=== PATIENT | male | born 1940 | race Two or more races ===

== ENCOUNTER 2017-11-26 08:43 | Inpatient (IN) | payer MEDICARE, OTHER ==
[~2017-11-26] VITALS: Ht 198.1 cm; Wt 67.6 kg
[2017-11-26] MEDS ORDERED: XTANDI40 MG ORAL (09:07)
--- NOTE | 2017-11-26 09:13 | Emergency Room Report ---
History of Present Illness General Chief Complaint: Diarrhea Source: Patient Present Illness HPI Patient presents with complaints of increased weight loss Decreased oral intake Epigastric discomfort with low back discomfort Patient reports that he had a history of prostate cancer had previous surgery however the cancer again returned Over the past 3 years he has been on a drug trial enzalutamide Patient's physician Dr. uribe [phone] is at [facility] Patient denies any fevers however he also reports recent URI symptoms Mild cough Allergies: Coded Allergies: No Known Allergies (Unverified , 11/26/17) Patient History Past Medical History: see triage record Pertinent Family History: none Reviewed Nursing Documentation: PMH: Agreed, PSxH: Agreed Nursing Documentation-PMH Past Medical History: No History, Except For Hx Cancer: Yes - prostate Review of Systems All Other Systems: negative except mentioned in HPI Physical Exam Vital Signs Date Time Temp Pulse Resp B/P (MAP) Pulse Ox O2 Delivery O2 Flow Rate FiO2 11/26/17 08:55 97.5 115 18 93/61 98 Room Air Sp02 EP Interpretation: reviewed, normal General Appearance: no apparent distress Head: normocephalic, atraumatic Eyes: bilateral eye PERRL, bilateral eye EOMI, bilateral eye scleral icterus ENT: hearing grossly normal, TMs + canals normal, uvula midline, dry mucus membranes Neck: full range of motion, supple, no meningismus, no bony tend Respiratory: lungs clear, normal breath sounds, no rhonchi, no respiratory distress, no retraction, no accessory muscle use Cardiovascular #1: normal peripheral pulses, regular rate, rhythm, no edema, no gallop, no JVD, no murmur Gastrointestinal: normal bowel sounds, non tender, soft, no mass, no organomegaly, non-distended, no guarding, no hernia, no pulsatile mass, no rebound Genitourinary: no CVA tenderness Musculoskeletal: normal inspection Neurologic: oriented x3, responsive, 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, motor strength/ tone normal, sensory intact Psychiatric: mood/affect normal Skin: normal color, no rash, warm/dry, palpation normal Lymphatic: normal inspection, no adenopathy Medical Decision Making Diagnostic Impression: Primary Impression: Diarrhea Additional Impressions: Medication reaction Hepatitis ER Course Patient has presented on this Also shows evidence of weight loss Extensive blood work and imaging reveals abnormal findings with liver abnormalities Patient's further hydrated at this time does not complain of pain Patient will require further inpatient evaluation and imaging And admitted for further care Labs Test 11/26/17 09:30 11/26/17 10:05 11/27/17 08:14 White Blood Count 8.6 K/UL (4.8-10.8) 7.3 K/UL (4.8-10.8) Red Blood Count 4.34 M/UL (4.70-6.10) 4.10 M/UL (4.70-6.10) Hemoglobin 10.6 G/DL (14.2-18.0) 10.2 G/DL (14.2-18.0) Hematocrit 35.3 % (42.0-52.0) 33.1 % (42.0-52.0) Mean Corpuscular Volume 81 FL (80-99) 81 FL (80-99) Mean Corpuscular Hemoglobin 24.3 PG (27.0-31.0) 24.9 PG (27.0-31.0) Mean Corpuscular Hemoglobin Concent 29.9 G/DL (32.0-36.0) 30.9 G/DL (32.0-36.0) Red Cell Distribution Width 13.2 % (11.6-14.8) 13.3 % (11.6-14.8) Platelet Count 215 K/UL (150-450) 190 K/UL (150-450) Mean Platelet Volume 12.0 FL (6.5-10.1) 11.5 FL (6.5-10.1) Neutrophils (%) (Auto) % (45.0-75.0) 79.6 % (45.0-75.0) Lymphocytes (%) (Auto) % (20.0-45.0) 10.2 % (20.0-45.0) Monocytes (%) (Auto) % (1.0-10.0) 8.1 % (1.0-10.0) Eosinophils (%) (Auto) % (0.0-3.0) 1.5 % (0.0-3.0) Basophils (%) (Auto) % (0.0-2.0) 0.6 % (0.0-2.0) Differential Total Cells Counted 100 Neutrophils % (Manual) 91 % (45-75) Lymphocytes % (Manual) 4 % (20-45) Monocytes % (Manual) 4 % (1-10) Eosinophils % (Manual) 0 % (0-3) Basophils % (Manual) 1 % (0-2) Band Neutrophils 0 % (0-8) Platelet Estimate Adequate Platelet Morphology Normal Hypochromasia 1+ Anisocytosis 1+ Sodium Level 138 MMOL/L (136-145) 139 MMOL/L (136-145) Potassium Level 4.0 MMOL/L (3.5-5.1) 4.1 MMOL/L (3.5-5.1) Chloride Level 103 MMOL/L (98-107) 107 MMOL/L (98-107) Carbon Dioxide Level 25 MMOL/L (21-32) 25 MMOL/L (21-32) Anion Gap 10 mmol/L (5-15) 8 mmol/L (5-15) Blood Urea Nitrogen 32 mg/dL (7-18) 19 mg/dL (7-18) Creatinine 1.7 MG/DL (0.55-1.30) 0.9 MG/DL (0.55-1.30) Estimat Glomerular Filtration Rate mL/min (>60) mL/min (>60) Glucose Level 116 MG/DL (74-106) 84 MG/DL (74-106) Lactic Acid Level 2.10 mmol/L (0.66-2.22) 1.80 mmol/L (0.66-2.22) Calcium Level 10.4 MG/DL (8.5-10.1) 10.1 MG/DL (8.5-10.1) Total Bilirubin 18.7 MG/DL (0.2-1.0) 18.6 MG/DL (0.2-1.0) Direct Bilirubin 15.7 MG/DL (0.0-0.3) 15.3 MG/DL (0.0-0.3) Aspartate Amino Transf (AST/SGOT) 127 U/L (15-37) 114 U/L (15-37) Alanine Aminotransferase (ALT/SGPT) 254 U/L (12-78) 214 U/L (12-78) Alkaline Phosphatase 222 U/L (46-116) 200 U/L (46-116) Total Creatine Kinase 22 U/L (26-308) Creatine Kinase MB < 0.5 NG/ML (0.0-3.6) Creatine Kinase MB Relative Index 2.2 Troponin I 0.000 ng/mL (0.000-0.056) Total Protein 8.4 G/DL (6.4-8.2) 7.5 G/DL (6.4-8.2) Albumin 2.9 G/DL (3.4-5.0) 2.5 G/DL (3.4-5.0) Globulin 5.5 g/dL 5.0 g/dL Albumin/Globulin Ratio 0.5 (1.0-2.7) 0.5 (1.0-2.7) Lipase 596 U/L (73-393) Urine Color Brown Urine Appearance Cloudy Urine pH 5 (4.5-8.0) Urine Specific [place] 1.020 (1.005-1.035) Urine Protein 2+ (NEGATIVE) Urine Glucose (UA) Negative (NEGATIVE) Urine Ketones Negative (NEGATIVE) Urine Occult Blood 4+ (NEGATIVE) Urine Nitrite Positive (NEGATIVE) Urine Bilirubin 3+ (NEGATIVE) Urine Ictotest Positive Urine Urobilinogen 4 MG/DL (0.0-1.0) Urine Leukocyte Esterase 3+ (NEGATIVE) Urine RBC 10-15 /HPF (0 - 0) Urine WBC Tntc /HPF (0 - 0) Urine Squamous Epithelial Cells Moderate /LPF (NONE/OCC) Urine Bacteria Moderate /HPF (NONE) Prothrombin Time 12.1 SEC (9.30-11.50) Prothromb Time International Ratio 1.2 (0.9-1.1) Rhythm Strip Diag. Results EP Interpretation: yes Rate: 78 Rhythm: NSR, no PVC's, no ectopy Chest X-Ray Diagnostic Results Chest X-Ray Diagnostic Results : Chest X-Ray Ordered: Yes # of Views/Limited/Complete: 1 View Indication: Chest Pain EP Interpretation: Yes Interpretation: no consolidation, no effusion, no pneumothorax, no acute cardiopulmonary disease Impression: No acute disease Electronically Signed by: Kristie Hartley, CT/MRI/US Diagnostic Results CT/MRI/US Diagnostic Results : Impression abdominal ultrasoundIMPRESSION: Hepatomegaly with coarsened echotexture. Correlate for chronic disease. 3.6 cm distal abdominal aortic aneurysm. Biliary ductal dilatation. Downstream obstruction or stenosis may be evaluated with MRCP. Please correlate clinically. Gallbladder sludge Multiple cysts within the left kidney. Last Vital Signs Date Time Temp Pulse Resp B/P (MAP) Pulse Ox O2 Delivery O2 Flow Rate FiO2 11/26/17 08:55 97.5 115 18 93/61 98 Room Air Status: improved Disposition: ADMITTED INPATIENT Condition: Serious KRISTIE HARTLEY D.O. Nov 26, 2017 09:13
[2017-11-26 09:55] LABS: HEMATOCRIT 35.3 % (42.0-52.0); HEMOGLOBIN 10.6 G/DL (14.2-18.0); MEAN CORPUSCULAR VOLUME 81 FL (80-99); PLATELET COUNT 215 K/UL (150-450); RED BLOOD COUNT 4.34 M/UL (4.70-6.10); RED CELL DISTRIBUTION WIDTH 13.2 % (11.6-14.8); WHITE BLOOD COUNT 8.6 K/UL (4.8-10.8)
[2017-11-26 09:59] LABS: ANION GAP 10 mmol/L (5-15); BLOOD UREA NITROGEN 32 mg/dL (7-18); CALCIUM 10.4 MG/DL (8.5-10.1); CARBON DIOXIDE 25 MMOL/L (21-32); CHLORIDE 103 MMOL/L (98-107); CREATININE 1.7 MG/DL (0.55-1.30); SODIUM 138 MMOL/L (136-145)
[2017-11-26 10:13] LABS: ALANINE AMINOTRANSFERASE 254 U/L (12-78); ALBUMIN 2.9 G/DL (3.4-5.0); ALBUMIN/GLOBULIN RATIO 0.5 (1.0-2.7); ALKALINE PHOSPHATASE 222 U/L (46-116); ASPARTATE AMINO TRANSFERASE 127 U/L (15-37); BILIRUBIN,TOTAL 18.7 MG/DL (0.2-1.0); CKMB < 0.5 NG/ML (0.0-3.6); CREATINE KINASE 22 U/L (26-308)
[2017-11-26 10:17] LABS: BILIRUBIN,DIRECT 15.7 MG/DL (0.0-0.3)
[2017-11-26 11:14] LABS: APPEARANCE,URINE CLOUDY; BILIRUBIN, URINE 3+ (NEGATIVE); COLOR,URINE BROWN; GLUCOSE, URINE (UA) NEGATIVE (NEGATIVE); KETONES,URINE NEGATIVE (NEGATIVE); LEUKOCYTE ESTERASE ,URINE 3+ (NEGATIVE); NITRITE,URINE POSITIVE (NEGATIVE); PH,URINE 5 (4.5-8.0); PROTEIN,URINE 2+ (NEGATIVE); UROBILINOGEN,URINE 4 MG/DL (0.0-1.0)
[2017-11-26 11:54] VITALS: BP 139/74
[2017-11-26 12:40] VITALS: BP 140/72
--- NOTE | 2017-11-26 14:16 | Diagnostic Imaging Report ---
Indication: Chest pain Comparison: None A single view chest radiograph was obtained. Findings: Lungs are clear. Heart is normal in size. Bones are osteopenic. IMPRESSION: No acute disease
--- NOTE | 2017-11-26 15:22 | Diagnostic Imaging Report ---
Indication: Elevated liver function test Technique: Grayscale and duplex Doppler imaging of the abdomen performed. Comparison: None Findings: There is an aneurysm of the abdominal aorta distally measuring 3.6 cm maximally. Liver is prominent in size. There is intrahepatic biliary ductal dilatation. The CBD is dilated measuring 13 mm. Gallbladder sludge noted. No stones seen. Demonstrated are present in the pancreas is unremarkable. There are multiple cysts within the left kidney. There is no ascites. Liver demonstrates a somewhat coarsened echotexture. Portal vein is patent by Doppler. IMPRESSION: Hepatomegaly with coarsened echotexture. Correlate for chronic disease. 3.6 cm distal abdominal aortic aneurysm. Biliary ductal dilatation. Downstream obstruction or stenosis may be evaluated with MRCP. Please correlate clinically. Gallbladder sludge Multiple cysts within the left kidney.
--- NOTE | 2017-11-26 16:46 | General Progress Note ---
Assessment/Plan Assessment/Plan GI CONSULT Dictated Will arrange for ERCP Wednesday Thank you Kasandra Jose MD Subjective Allergies: Coded Allergies: No Known Allergies (Unverified , 11/26/17) Objective Last 24 Hour Vital Signs Date Time Temp Pulse Resp B/P (MAP) Pulse Ox O2 Delivery O2 Flow Rate FiO2 11/26/17 12:40 97.2 84 18 140/72 98 Room Air 11/26/17 11:54 98.7 19 139/74 99 Room Air 11/26/17 11:25 19 138/74 99 Room Air 11/26/17 08:55 97.5 115 18 93/61 98 Room Air Laboratory Tests 11/26/17 09:30: White Blood Count 8.6, Red Blood Count 4.34L, Hemoglobin 10.6L, Hematocrit 35.3L , Mean Corpuscular Volume 81, Mean Corpuscular Hemoglobin 24.3L, Mean Corpuscular Hemoglobin Concent 29.9L, Red Cell Distribution Width 13.2, Platelet Count 215, Mean Platelet Volume 12.0H, Neutrophils (%) (Auto) , Lymphocytes (%) (Auto) , Monocytes (%) (Auto) , Eosinophils (%) (Auto) , Basophils (%) (Auto) , Differential Total Cells Counted 100, Neutrophils % ( Manual) 91H, Lymphocytes % (Manual) 4L, Monocytes % (Manual) 4, Eosinophils % ( Manual) 0, Basophils % (Manual) 1, Band Neutrophils 0, Platelet Estimate Adequate, Platelet Morphology Normal, Hypochromasia 1+, Anisocytosis 1+, Sodium Level 138, Potassium Level 4.0, Chloride Level 103, Carbon Dioxide Level 25, Anion Gap 10, Blood Urea Nitrogen 32H, Creatinine 1.7H, Estimat Glomerular Filtration Rate , Glucose Level 116H, Lactic Acid Level 2.10, Calcium Level 10.4H, Total Bilirubin 18.7H, Direct Bilirubin 15.7H, Aspartate Amino Transf ( AST/SGOT) 127H, Alanine Aminotransferase (ALT/SGPT) 254H, Alkaline Phosphatase 222H, Total Creatine Kinase 22L, Creatine Kinase MB < 0.5, Creatine Kinase MB Relative Index 2.2, Troponin I 0.000, Total Protein 8.4H, Albumin 2.9L, Globulin 5.5, Albumin/Globulin Ratio 0.5L, Lipase 596H 2/2/18 10:05: Lactic Acid Level 1.80, Urine Color Brown, Urine Appearance Cloudy, Urine pH 5, Urine Specific [place] 1.020, Urine Protein 2+H, Urine Glucose (UA) Negative, Urine Ketones Negative, Urine Occult Blood 4+H, Urine Nitrite PositiveH, Urine Bilirubin 3+H, Urine Ictotest Positive, Urine Urobilinogen 4H, Urine Leukocyte Esterase 3+H, Urine RBC 10-15H, Urine WBC TntcH, Urine Squamous Epithelial Cells ModerateH, Urine Bacteria ModerateH Height (Feet): 6 Height (Inches): 3.00 Weight (Pounds): 149 TAVONKASANDRA MARTINEZ Nov 26, 2017 16:46
[2017-11-26 20:02] VITALS: BP 130/74
--- NOTE | 2017-11-26 23:45 | History and Physical Report ---
DATE OF ADMISSION: 11/26/2017 REASON FOR ADMISSION: Weakness, anorexia, diarrhea, and dizziness. HISTORY OF PRESENT ILLNESS: This is a 77-year-old male. He lives home alone. He has a history of prostate cancer that apparently is metastatic. He is on a drug trial at [facility] taking enzalutamide versus placebo. In addition, he gets hormone injections every three months. The patient has been well until about a month ago when he had a upper respiratory infection, which he described as a flu. He has never recovered from that in his opinion, although his cough has decreased and he is no longer short of breath, but he has remained weak, withdrawn with anorexia, and a poor appetite. He has also had episodes of diarrhea. He did not take any antibiotics or other therapies for this illness however. The patient continues to feel dizzy and lightheaded upon standing and walking. PAST MEDICAL HISTORY: Prostate cancer. ALLERGIES: None. MEDICATIONS: Prior to admission as noted include trial drug versus placebo alone. FAMILY HISTORY: Noncontributory. SOCIAL HISTORY: Negative for smoking, alcohol, or substance abuse. REVIEW OF SYSTEMS: A 10-point review of systems performed, all systems negative other than noted above. PHYSICAL EXAMINATION: VITAL SIGNS: Blood pressure 93/61, pulse 115, respirations 18, and afebrile. HEENT: Temporal wasting. Pale conjunctivae. Oropharynx clear. Mucous membranes dry. NECK: Supple. Jugular venous pressure normal. LUNGS: Clear. CARDIAC: Regular rhythm. Rapid rate. Normal S1, S2 with a fourth heart sound. No murmur. ABDOMEN: Soft, nontender. No guarding. No rebound. EXTREMITIES: Good pulses. No edema. NEUROLOGIC: Nonfocal. LABORATORY AND DIAGNOSTIC DATA: White count 8.6, hemoglobin 10.6, MCV 81. Sodium 138, potassium 4, bicarbonate 25, BUN 32, and creatinine 1.7. Lactic acid normal. Calcium 10.4 with albumin of 2.9. Liver function elevated with total bilirubin 18, AST ALT 127/254, and alkaline phosphatase of 222 with lipase of 596. EKG with sinus tachycardia and nonspecific ST-T changes. Abdominal ultrasound revealed multiple cysts and gallbladder sludge with dilated biliary duct and abdominal aortic aneurysm of 3.6 cm. Chest x-ray reveals no acute process. IMPRESSION: 1. Transaminitis. 2. Moderate protein-calorie malnutrition. 3. Anorexia and failure to thrive. 4. Hypovolemia and dehydration. 5. Orthostatic hypotension. 6. Metastatic prostate cancer. 7. Secondary sinus tachycardia. 8. Early shock due to hypovolemia. 9. Recovered upper respiratory infection. 10. Renal cyst. 11. Abdominal aortic aneurysm, presently of no clinical significance. PLAN: 1. Volume resuscitation. 2. Nutritional support. 3. We will contact will review records at [facility] to expand database. 4. Gastrointestinal consultation. 5. He will likely need endoscopic retrograde cholangiopancreatography. 6. Protein supplements. 7. Metabolic profile. 8. Stress ulcer and DVT prophylaxes. Perry Desai M.D. DR: TEO JOB#: [id number] CC:
[2017-11-27 00:11] VITALS: BP 136/78
[2017-11-27 04:01] VITALS: BP 145/87
[2017-11-27 08:00] VITALS: BP 137/76
[2017-11-27 09:08] LABS: INR 1.2 (0.9-1.1)
--- NOTE | 2017-11-27 09:25 | General Progress Note ---
Assessment/Plan Problem List: (1) painless juandice (2) dilated common bile duct (3) Weight loss ICD Codes: R63.4 - Abnormal weight loss SNOMED: 67883833, [id number] Assessment/Plan concern for pancreatic malegnancy plan CT stat +/- abx if needed plan possible ERCP on Wednesday Subjective ROS Limited/Unobtainable: Yes Allergies: Coded Allergies: No Known Allergies (Unverified , 11/26/17) Subjective no abd pain Objective Last 24 Hour Vital Signs Date Time Temp Pulse Resp B/P (MAP) Pulse Ox O2 Delivery O2 Flow Rate FiO2 11/27/17 08:00 97.2 86 18 137/76 100 11/27/17 04:01 96.8 95 20 145/87 98 Room Air 11/27/17 00:11 96.4 81 20 136/78 100 Room Air 11/26/17 20:02 96.8 70 20 130/74 100 Room Air 11/26/17 12:40 97.2 84 18 140/72 98 Room Air 11/26/17 11:54 98.7 19 139/74 99 Room Air 11/26/17 11:25 19 138/74 99 Room Air Intake and Output 11/26/17 11/27/17 19:00 07:00 Intake Total 700 ml 700 ml Output Total 400 ml Balance 300 ml 700 ml Intake Oral 300 ml IV Total 400 ml 700 ml Output Urine Total 400 ml Laboratory Tests 11/26/17 09:30: White Blood Count 8.6, Red Blood Count 4.34L, Hemoglobin 10.6L, Hematocrit 35.3L , Mean Corpuscular Volume 81, Mean Corpuscular Hemoglobin 24.3L, Mean Corpuscular Hemoglobin Concent 29.9L, Red Cell Distribution Width 13.2, Platelet Count 215, Mean Platelet Volume 12.0H, Neutrophils (%) (Auto) , Lymphocytes (%) (Auto) , Monocytes (%) (Auto) , Eosinophils (%) (Auto) , Basophils (%) (Auto) , Differential Total Cells Counted 100, Neutrophils % ( Manual) 91H, Lymphocytes % (Manual) 4L, Monocytes % (Manual) 4, Eosinophils % ( Manual) 0, Basophils % (Manual) 1, Band Neutrophils 0, Platelet Estimate Adequate, Platelet Morphology Normal, Hypochromasia 1+, Anisocytosis 1+, Sodium Level 138, Potassium Level 4.0, Chloride Level 103, Carbon Dioxide Level 25, Anion Gap 10, Blood Urea Nitrogen 32H, Creatinine 1.7H, Estimat Glomerular Filtration Rate , Glucose Level 116H, Lactic Acid Level 2.10, Calcium Level 10.4H, Total Bilirubin 18.7H, Direct Bilirubin 15.7H, Aspartate Amino Transf ( AST/SGOT) 127H, Alanine Aminotransferase (ALT/SGPT) 254H, Alkaline Phosphatase 222H, Total Creatine Kinase 22L, Creatine Kinase MB < 0.5, Creatine Kinase MB Relative Index 2.2, Troponin I 0.000, Total Protein 8.4H, Albumin 2.9L, Globulin 5.5, Albumin/Globulin Ratio 0.5L, Lipase 596H 11/26/17 10:05: Lactic Acid Level 1.80, Urine Color Brown, Urine Appearance Cloudy, Urine pH 5, Urine Specific [place] 1.020, Urine Protein 2+H, Urine Glucose (UA) Negative, Urine Ketones Negative, Urine Occult Blood 4+H, Urine Nitrite PositiveH, Urine Bilirubin 3+H, Urine Ictotest Positive, Urine Urobilinogen 4H, Urine Leukocyte Esterase 3+H, Urine RBC 10-15H, Urine WBC TntcH, Urine Squamous Epithelial Cells ModerateH, Urine Bacteria ModerateH 11/27/17 08:14: White Blood Count [Pending], Red Blood Count [Pending], Hemoglobin [Pending], Hematocrit [Pending], Mean Corpuscular Volume [Pending], Mean Corpuscular Hemoglobin [Pending], Mean Corpuscular Hemoglobin Concent [Pending], Red Cell Distribution Width [Pending], Platelet Count [Pending], Mean Platelet Volume [ Pending], Neutrophils (%) (Auto) [Pending], Lymphocytes (%) (Auto) [Pending], Monocytes (%) (Auto) [Pending], Eosinophils (%) (Auto) [Pending], Basophils (%) (Auto) [Pending], Sodium Level [Pending], Potassium Level [Pending], Chloride Level [Pending], Carbon Dioxide Level [Pending], Blood Urea Nitrogen [Pending], Creatinine [Pending], Estimat Glomerular Filtration Rate [Pending], Glucose Level [Pending], Calcium Level [Pending], Total Bilirubin [Pending], Aspartate Amino Transf (AST/SGOT) [Pending], Alanine Aminotransferase (ALT/SGPT) [Pending] , Alkaline Phosphatase [Pending], Total Protein [Pending], Albumin [Pending], Globulin [Pending], Prothrombin Time [Pending], Prothromb Time International Ratio [Pending] Height (Feet): 6 Height (Inches): 3.00 Weight (Pounds): 149 General Appearance: alert EENT: scleral icterus Neck: supple Cardiovascular: normal rate Respiratory/Chest: decreased breath sounds Abdomen: normal bowel sounds, non tender, soft Extremities: non-tender DANO COLEMAN Nov 27, 2017 09:25
[2017-11-27 09:42] LABS: ALANINE AMINOTRANSFERASE 214 U/L (12-78); ALBUMIN 2.5 G/DL (3.4-5.0); ALBUMIN/GLOBULIN RATIO 0.5 (1.0-2.7); ALKALINE PHOSPHATASE 200 U/L (46-116); ANION GAP 8 mmol/L (5-15); ASPARTATE AMINO TRANSFERASE 114 U/L (15-37); BILIRUBIN,TOTAL 18.6 MG/DL (0.2-1.0); BLOOD UREA NITROGEN 19 mg/dL (7-18); CALCIUM 10.1 MG/DL (8.5-10.1); CARBON DIOXIDE 25 MMOL/L (21-32); CHLORIDE 107 MMOL/L (98-107); CREATININE 0.9 MG/DL (0.55-1.30); POTASSIUM 4.1 MMOL/L (3.5-5.1); SODIUM 139 MMOL/L (136-145)
[2017-11-27 09:45] LABS: BILIRUBIN,DIRECT 15.3 MG/DL (0.0-0.3)
[2017-11-27 10:03] LABS: BASOPHILS % (AUTO) 0.6 % (0.0-2.0); EOSINOPHILS % (AUTO) 1.5 % (0.0-3.0); HEMATOCRIT 33.1 % (42.0-52.0); HEMOGLOBIN 10.2 G/DL (14.2-18.0); LYMPHOCYTES % (AUTO) 10.2 % (20.0-45.0); MEAN CORPUSCULAR VOLUME 81 FL (80-99); MONOCYTES % (AUTO) 8.1 % (1.0-10.0); NEUTROPHILS % (AUTO) 79.6 % (45.0-75.0); PLATELET COUNT 190 K/UL (150-450); RED CELL DISTRIBUTION WIDTH 13.3 % (11.6-14.8); WHITE BLOOD COUNT 7.3 K/UL (4.8-10.8)
[2017-11-27 12:00] VITALS: BP 135/77
[2017-11-27 16:00] VITALS: BP 136/76
--- NOTE | 2017-11-27 16:03 | Cardiology Report ---
APPROVED REPORT EKG Measurement Heart [id number] Sinus rhythm with occasional PVC's Left axis deviation Right bundle branch block Abnormal ECG
[2017-11-27 21:06] VITALS: BP 134/77
[2017-11-28 00:35] VITALS: BP 134/76
[2017-11-28 04:00] VITALS: BP 139/68
[2017-11-28 08:00] VITALS: BP 126/82
--- NOTE | 2017-11-28 08:10 | General Progress Note ---
Assessment/Plan Problem List: (1) painless juandice (2) dilated common bile duct (3) Weight loss ICD Codes: R63.4 - Abnormal weight loss SNOMED: [id number], [id number] Assessment/Plan concern for pancreatic malignancy f/u CT +/- abx if needed plan possible ERCP on Wednesday Subjective ROS Limited/Unobtainable: Yes Allergies: Coded Allergies: No Known Allergies (Unverified , 11/26/17) Subjective no abd pain Objective Last 24 Hour Vital Signs Date Time Temp Pulse Resp B/P (MAP) Pulse Ox O2 Delivery O2 Flow Rate FiO2 11/28/17 04:00 97.5 85 20 139/68 99 Room Air 11/28/17 00:35 97.9 77 18 134/76 99 Room Air 11/27/17 21:06 97.7 76 18 134/77 99 Room Air 11/27/17 16:10 96 Room Air 11/27/17 16:00 98.2 89 20 136/76 97 11/27/17 12:05 96 Room Air 11/27/17 12:00 97.0 82 18 135/77 97 Intake and Output 11/27/17 11/28/17 19:00 07:00 Intake Total 1380 ml 180 ml Output Total 400 ml Balance 1380 ml -220 ml Intake Oral 420 ml 180 ml IV Total 960 ml Output Urine Total 400 ml # Voids 4 3 # Bowel Movements 1 1 Laboratory Tests 11/27/17 08:14: White Blood Count 7.3, Red Blood Count 4.10L, Hemoglobin 10.2L, Hematocrit 33.1L , Mean Corpuscular Volume 81, Mean Corpuscular Hemoglobin 24.9L, Mean Corpuscular Hemoglobin Concent 30.9L, Red Cell Distribution Width 13.3, Platelet Count 190, Mean Platelet Volume 11.5H, Neutrophils (%) (Auto) 79.6H, Lymphocytes (%) (Auto) 10.2L, Monocytes (%) (Auto) 8.1, Eosinophils (%) (Auto) 1.5, Basophils (%) (Auto) 0.6, Prothrombin Time 12.1H, Prothromb Time International Ratio 1.2H, Sodium Level 139, Potassium Level 4.1, Chloride Level 107, Carbon Dioxide Level 25, Anion Gap 8, Blood Urea Nitrogen 19H, Creatinine 0.9, Estimat Glomerular Filtration Rate , Glucose Level 84, Calcium Level 10.1, Total Bilirubin 18.6H, Direct Bilirubin 15.3H, Aspartate Amino Transf (AST/SGOT ) 114H, Alanine Aminotransferase (ALT/SGPT) 214H, Alkaline Phosphatase 200H, Total Protein 7.5, Albumin 2.5L, Globulin 5.0, Albumin/Globulin Ratio 0.5L 11/28/17 06:37: White Blood Count [Pending], Red Blood Count [Pending], Hemoglobin [Pending], Hematocrit [Pending], Mean Corpuscular Volume [Pending], Mean Corpuscular Hemoglobin [Pending], Mean Corpuscular Hemoglobin Concent [Pending], Red Cell Distribution Width [Pending], Platelet Count [Pending], Mean Platelet Volume [ Pending], Neutrophils (%) (Auto) [Pending], Lymphocytes (%) (Auto) [Pending], Monocytes (%) (Auto) [Pending], Eosinophils (%) (Auto) [Pending], Basophils (%) (Auto) [Pending], Sodium Level [Pending], Potassium Level [Pending], Chloride Level [Pending], Carbon Dioxide Level [Pending], Blood Urea Nitrogen [Pending], Creatinine [Pending], Estimat Glomerular Filtration Rate [Pending], Glucose Level [Pending], Calcium Level [Pending], Total Bilirubin [Pending], Aspartate Amino Transf (AST/SGOT) [Pending], Alanine Aminotransferase (ALT/SGPT) [Pending] , Alkaline Phosphatase [Pending], Total Protein [Pending], Albumin [Pending], Globulin [Pending], Lipase [Pending] Height (Feet): 6 Height (Inches): 3.00 Weight (Pounds): 149 General Appearance: alert EENT: normal ENT inspection, scleral icterus Neck: supple Cardiovascular: normal rate Respiratory/Chest: decreased breath sounds Abdomen: normal bowel sounds, non tender, soft Extremities: non-tender DANO COLEMAN Nov 28, 2017 08:10
[2017-11-28 08:34] LABS: BASOPHILS % (AUTO) 0.5 % (0.0-2.0); EOSINOPHILS % (AUTO) 1.8 % (0.0-3.0); HEMATOCRIT 31.4 % (42.0-52.0); HEMOGLOBIN 9.7 G/DL (14.2-18.0); LYMPHOCYTES % (AUTO) 10.1 % (20.0-45.0); MEAN CORPUSCULAR VOLUME 81 FL (80-99); MONOCYTES % (AUTO) 8.5 % (1.0-10.0); NEUTROPHILS % (AUTO) 79.2 % (45.0-75.0); PLATELET COUNT 205 K/UL (150-450); RED BLOOD COUNT 3.87 M/UL (4.70-6.10); RED CELL DISTRIBUTION WIDTH 13.8 % (11.6-14.8); WHITE BLOOD COUNT 7.1 K/UL (4.8-10.8)
[2017-11-28 08:38] LABS: ALANINE AMINOTRANSFERASE 208 U/L (12-78); ALBUMIN 2.2 G/DL (3.4-5.0); ALBUMIN/GLOBULIN RATIO 0.4 (1.0-2.7); ALKALINE PHOSPHATASE 197 U/L (46-116); ANION GAP 6 mmol/L (5-15); ASPARTATE AMINO TRANSFERASE 107 U/L (15-37); BILIRUBIN,TOTAL 17.4 MG/DL (0.2-1.0); BLOOD UREA NITROGEN 13 mg/dL (7-18); CALCIUM 9.7 MG/DL (8.5-10.1); CARBON DIOXIDE 25 MMOL/L (21-32); CHLORIDE 107 MMOL/L (98-107); CREATININE 0.9 MG/DL (0.55-1.30); POTASSIUM 3.8 MMOL/L (3.5-5.1); SODIUM 138 MMOL/L (136-145)
[2017-11-28 08:42] LABS: BILIRUBIN,DIRECT 14.6 MG/DL (0.0-0.3)
--- NOTE | 2017-11-28 09:29 | GI Progress Note ---
Assessment/Plan Problems: (1) painless juandice (2) dilated common bile duct (3) Weight loss ICD Codes: R63.4 - Abnormal weight loss SNOMED: [id number], [id number] Assessment/Plan reviewed the ct with the radiologist, may have pancreatic head mass no evidence of metastasis, so plan EUS/FNA first given patient may be surgical candidate Subjective Gastrointestinal/Abdominal: Reports: no symptoms Subjective no abd pain Objective Last 24 Hour Vital Signs Date Time Temp Pulse Resp B/P (MAP) Pulse Ox O2 Delivery O2 Flow Rate FiO2 11/28/17 08:00 97.7 91 19 126/82 99 11/28/17 04:00 97.5 85 20 139/68 99 Room Air 11/28/17 00:35 97.9 77 18 134/76 99 Room Air 11/27/17 21:06 97.7 76 18 134/77 99 Room Air 11/27/17 16:10 96 Room Air 11/27/17 16:00 98.2 89 20 136/76 97 11/27/17 12:05 96 Room Air 11/27/17 12:00 97.0 82 18 135/77 97 Intake and Output 11/27/17 11/28/17 19:00 07:00 Intake Total 1380 ml 180 ml Output Total 400 ml Balance 1380 ml -220 ml Intake Oral 420 ml 180 ml IV Total 960 ml Output Urine Total 400 ml # Voids 4 3 # Bowel Movements 1 1 Laboratory Tests Test 11/28/17 06:37 White Blood Count 7.1 K/UL (4.8-10.8) Red Blood Count 3.87 M/UL (4.70-6.10) L Hemoglobin 9.7 G/DL (14.2-18.0) L Hematocrit 31.4 % (42.0-52.0) L Mean Corpuscular Volume 81 FL (80-99) Mean Corpuscular Hemoglobin 25.1 PG (27.0-31.0) L Mean Corpuscular Hemoglobin Concent 30.9 G/DL (32.0-36.0) L Red Cell Distribution Width 13.8 % (11.6-14.8) Platelet Count 205 K/UL (150-450) Mean Platelet Volume 11.2 FL (6.5-10.1) H Neutrophils (%) (Auto) 79.2 % (45.0-75.0) H Lymphocytes (%) (Auto) 10.1 % (20.0-45.0) L Monocytes (%) (Auto) 8.5 % (1.0-10.0) Eosinophils (%) (Auto) 1.8 % (0.0-3.0) Basophils (%) (Auto) 0.5 % (0.0-2.0) Sodium Level 138 MMOL/L (136-145) Potassium Level 3.8 MMOL/L (3.5-5.1) Chloride Level 107 MMOL/L (98-107) Carbon Dioxide Level 25 MMOL/L (21-32) Anion Gap 6 mmol/L (5-15) Blood Urea Nitrogen 13 mg/dL (7-18) Creatinine 0.9 MG/DL (0.55-1.30) Estimat Glomerular Filtration Rate mL/min (>60) Glucose Level 90 MG/DL (74-106) Calcium Level 9.7 MG/DL (8.5-10.1) Total Bilirubin 17.4 MG/DL (0.2-1.0) H Direct Bilirubin 14.6 MG/DL (0.0-0.3) H Aspartate Amino Transf (AST/SGOT) 107 U/L (15-37) H Alanine Aminotransferase (ALT/SGPT) 208 U/L (12-78) H Alkaline Phosphatase 197 U/L (46-116) H Total Protein 7.2 G/DL (6.4-8.2) Albumin 2.2 G/DL (3.4-5.0) L Globulin 5.0 g/dL Albumin/Globulin Ratio 0.4 (1.0-2.7) L Lipase 793 U/L (73-393) H Height (Feet): 6 Height (Inches): 3.00 Weight (Pounds): 149 DANO COLEMAN Nov 28, 2017 09:29
--- NOTE | 2017-11-28 09:35 | Diagnostic Imaging Report ---
Clinical Indication: Abdominal pain Technique: Patient given oral contrast. IV administration nonionic contrast. Venous phase spiral acquisition obtained through the abdomen and pelvis. Multiplanar reconstructions were generated. Total dose length product 634.35 mGycm. CTDIvol(s) 11.76 mGy. Dose reduction achieved using automated exposure control Comparison: Reference made to ultrasound dated 11/26/2017 Findings: There is dilatation of the intrahepatic bile ducts, the hepatic duct, and the cystic duct. There is a low confluence of the cystic duct and the common hepatic duct. Immediately below the confluence, there is an apparent tight stricture of the common bile duct, downstream from which a short segment of still dilated common bile duct is demonstrated, downstream from which the common bile duct appears to be obstructed. There is some heterogeneity of the medial pancreatic head, area of heterogeneity measuring up proximal plate 2.5 x 2 cm in diameter. The pancreatic duct is not dilated. The gallbladder wall is not thickened, but there is some pericholecystic edema. The common hepatic duct measures up to 12 mm in diameter. No focal liver lesion demonstrated. There are some prominent but not frankly enlarged peripancreatic lymph nodes. There is some periportal edema. The spleen, adrenals, right kidney are unremarkable. Left kidney demonstrates multiple cysts. No retroperitoneal mass or adenopathy demonstrated. No pelvic mass or adenopathy. The prostate is small but contains some radiation seeds. There is a fusiform aneurysm of the abdominal aorta, which measures approximately 3.8 cm transverse dimension. This demonstrates a small amount of mural thrombus. The iliac arteries are not aneurysmal. There is evidence of occlusion of the right external iliac artery, distal reconstitution at the level of the common femoral artery. The appendix is normal. No evidence of diverticulosis or diverticulitis. No small bowel distention. No free or loculated intraperitoneal air or fluid is evident. The heart is enlarged. Atelectasis or scarring is seen at the left lung base. There is some posterior dependent atelectasis at the right lung base as well. The bones demonstrate scattered osteosclerotic lesions within the lower thoracic and lumbar spine. There is extensive degenerative spondylosis. Impression: Extensive biliary ductal dilatation. There appears to be a stricture of the common bile duct immediately below the common hepatic duct and cystic duct confluence, as well as complete obstruction of the common bile duct further downstream. There is subtle heterogeneity of the medial aspect of the pancreatic head. Findings are concerning for either cholangiocarcinoma of the common bile duct or pancreatic mass. Mild pericholecystic edema, likely related to the above. No definite gallstones Prominent but not frankly enlarged peripancreatic lymph nodes. Adenopathy not excludable. Evidence of prostate radiation seeds. Osteosclerotic bony lesions are concerning for prostate carcinoma metastases. Correlate with clinical history 3.8 cm fusiform aneurysm of the abdominal aorta. No evidence of leakage or rupture Occlusion of the right external iliac artery with distal reconstitution at the level of the common femoral artery. Correlate with any symptoms of claudication that may be present Cardiomegaly Left basilar pulmonary atelectasis or scarring. Right basilar dependent atelectasis Degenerative spondylosis This agrees with the preliminary interpretation provided overnight by [facility] service. Images reviewed in person with Dr. Terrazas The CT scanner at [facility] is accredited by the [employer] and the scans are performed using protocols designed to limit radiation exposure to as low as reasonably achievable to attain images of sufficient resolution adequate for diagnostic evaluation.
[2017-11-28 12:00] VITALS: BP 139/97
[2017-11-28 16:00] VITALS: BP 148/85
[2017-11-28 21:00] VITALS: BP 148/85
--- NOTE | 2017-11-28 23:04 | Consultation ---
DATE OF CONSULTATION: 11/26/2017 GASTROENTEROLOGY CONSULTATION CONSULTING PHYSICIAN: Kasandra Jose M.D. REFERRING PHYSICIAN: Perry Desai M.D. CHIEF COMPLAINT: I was asked to see this patient by Dr. Perry Desai for evaluation of jaundice. HISTORY OF PRESENT ILLNESS: The patient is a 77-year-old man who was in his usual state of health until a few weeks ago when he noticed the urine becoming more dark. He also noticed that he is becoming jaundiced over the past day or so. He came to the hospital because of some dizziness and upper respiratory symptoms, but in the hospital emergency room was found to have significantly abnormal liver tests and was therefore admitted. The patient is on a protocol study at [facility] for prostate cancer and he takes unknown drug versus placebo. His creatinine is elevated at 12.7. His bilirubin is markedly elevated at 18.7. He drinks about 2 to 3 beers a day for the past 30 years, but his platelet count is normal. There is no coags reported. Imaging studies was done with an ultrasound showing hepatomegaly with coarsened echotexture, which was felt to be consistent with chronic liver disease. There was also biliary ductal dilatation, rule out downstream obstruction or stenosis. The patient himself denies any abdominal pain, nausea, or vomiting. PAST MEDICAL HISTORY: Remarkable for history of prostate cancer. FAMILY HISTORY: Noncontributory. SOCIAL HISTORY: The patient is single now, but obviously he was previously . He does not smoke. He drinks two or three beers a day for the past 30 years. REVIEW OF SYSTEMS: Otherwise, negative. MEDICATIONS: Protocol for prostate cancer. PHYSICAL EXAMINATION: GENERAL: The patient is pleasant man, seen in his room. HEENT: Normocephalic and atraumatic. Sclerae anicteric. Oropharynx clear. NECK: Supple. CHEST: Clear to auscultation. CARDIOVASCULAR: Revealed a regular rate. ABDOMEN: Soft. Good bowel sounds. There is no organomegaly. EXTREMITIES: No tenderness. LABORATORY AND DIAGNOSTIC DATA: Laboratory data were noted. ASSESSMENT: This patient presents with some abdominal findings on imaging studies consistent with possible biliary ductal dilatation. This is also consistent with his significant bilirubin level. I doubt if this is from chronic liver disease or cirrhosis as his platelet count is normal, and he does not have any significant ascites or other manifestations. I suspect this is from acute obstructive process and may be due to benign pathology such as stones or malignancy. The patient will need an ERCP examination to evaluate the above, which can be done over the next few days. In the meantime, the patient can be observed and his laboratory parameters should be followed. There is also possibility of drug-induced phenomena from this unknown protocol medication. I would hold the medication for now until further evaluation is complete. RECOMMENDATIONS: Per above discussion and per orders written in the chart. Thank you for asking me to participate in the care of this patient. Kasandra Jose M.D. DR: ORLY JOB#: [id number] CC:
--- NOTE | 2017-11-28 23:05 | Progress Note ---
DATE: 11/27/2017 CARDIOLOGY AND INTERNAL MEDICINE PROGRESS NOTE SUBJECTIVE: The patient has no nausea or vomiting. No abdominal pain. Appetite is poor. He is tolerating diet. OBJECTIVE: VITAL SIGNS: Blood pressure of 137/76, pulse 86, respirations 18, and afebrile. RESPIRATORY: Good breath sounds. HEART: Regular rhythm and rate. Normal S1, S2. ABDOMEN: Soft. EXTREMITIES: Trace edema. DIAGNOSTIC DATA: CAT scan of the abdomen is pending. IMPRESSION: 1. Prostate cancer with metastatic disease. 2. Transaminitis with biliary duct dilatation. 3. Protein-calorie malnutrition. 4. Failure to thrive. 5. Painless jaundice with dilated common bile duct. 6. Dehydration and hypovolemia, improving. PLAN: 1. Taper intravenous fluids. 2. Encourage oral intake as tolerated. 3. Await CAT scan of the abdomen. 4. Possible endoscopic retrograde cholangiopancreatography. 5. DVT prophylaxis. Perry Desai M.D. DR: TEO JOB#: [id number] CC:
--- NOTE | 2017-11-28 23:05 | Consultation ---
DATE OF CONSULTATION: 11/27/2017 HISTORY OF PRESENT ILLNESS: The patient is a 77-year-old black male. The patient with history of prostate cancer, which is also metastatic, who presented to the hospital with chief complaint of weakness, anorexia, diarrhea, and dizziness. The patient has been presented with depressive symptoms including depressed mood. The patient has been minimizing his symptoms and stated that overall he is doing well. He denies any insomnia or anxiety. He does not endorse any manic or psychotic symptoms. He also stated he has a family member, but however, the family is not being very supportive and he has poor support system. PAST PSYCHIATRIC HISTORY: Denies any history of depressive, manic or psychotic episodes in the past. No suicide attempt in the past. No psychiatric . PAST MEDICAL HISTORY: Significant for prostate cancer and hepatitis. ALLERGIES: No known drug allergies. SUBSTANCE ABUSE HISTORY: No known history of illicit drug use or alcohol. Nonsmoker. MENTAL STATUS EXAMINATION: The patient is alert and oriented times self, place, time, and situation he is in. Mood is depressed. Affect is blunted, congruent with mood. Thought process is linear. Thought content, no suicidal or homicidal ideation. Cognition is intact. Insight and judgment is fair. ASSESSMENT: AXIS I Major depressive disorder. AXIS II Deferred. AXIS III As above. AXIS IV Moderate to high. AXIS V Global assessment of functioning is 50. PLAN: 1. We will start the patient on Lexapro 10 mg in the morning. 2. We will continue to follow. Thank you, Dr. Desai, for this interesting case. Kyler Schumacher M.D. DR: CAITLIN JOB#: [id number] CC:
[2017-11-29] VITALS (11 sets, daily range): BP systolic 137–156; BP diastolic 77–94
--- NOTE | 2017-11-29 04:00 | Progress Note ---
DATE: 11/28/2017 INTERNAL MEDICINE PROGRESS NOTE SUBJECTIVE: The patient had an abnormal CAT scan. There may be a pancreatic mass. FNA is planned. OBJECTIVE: VITAL SIGNS: Blood pressure 126/82, pulse 91, and respiratory rate 19. NECK: Supple. LUNGS: Clear. CARDIAC: Regular. Normal S1 and S2. ABDOMEN: Soft. EXTREMITIES: No edema. LABORATORY DATA: Reviewed. White count 7.1 and hemoglobin 9.7. Albumin 2.2. PLAN: 1. Check CA-19-9. 2. Continue cautious hydration. 3. Encourage oral intake. 4. We will need to discuss with GI attending regarding further diagnostic studies as it is unclear whether the patient is a candidate for surgical intervention. Perry Desai M.D. DR: Dylan JOB#: [id number] CC:
--- NOTE | 2017-11-29 07:55 | Anethesia Preoperative Eval ---
Anesthesia Pre-op PMH/ROS General Date of Evaluation: Nov 29, 2017 Time of Evaluation: 07:53 Anesthesiologist: chica ASA Score: ASA 3 Mallampati Score Class I : Soft palate, uvula, fauces, pillars visible Class II: Soft palate, uvula, fauces visible Class III: Soft palate, base of uvula visible Class IV: Only hard plate visible Mallampati Classification: Class II Surgeon: azul Diagnosis: dilated common bile duct Surgical Procedure: eus Anesthesia History: none Social History: smoking - nonsmoker Family History: no anesthesia problems Allergies: Coded Allergies: No Known Allergies (Unverified , 11/26/17) Medications: see eMAR Past Medical History Gastrointestinal/Genitourinary: Reports: other - hepatitis, painless jaundice, prostate cancer Anesthesia Pre-op Phys. Exam Physician Exam Last Vital Signs Date Time Temp Pulse Resp B/P (MAP) Pulse Ox O2 Delivery O2 Flow Rate FiO2 11/29/17 04:00 97.5 86 18 146/79 98 11/28/17 04:00 Room Air Neurologic: CN 2-12 intact Cardiovascular: RRR Respiratory: CTA Gastrointestinal: S/NT/ND Airway Exam Mallampati Score: Class II MO: limited Neck: decreased rom to lateral rotation TMD: 2fb ROM: limited Dentures: upper, lower Anesthesia Pre-op A/P Labs Hematology Test 11/29/17 06:05 White Blood Count Pending Red Blood Count Pending Hemoglobin Pending Hematocrit Pending Mean Corpuscular Volume Pending Mean Corpuscular Hemoglobin Pending Mean Corpuscular Hemoglobin Concent Pending Red Cell Distribution Width Pending Platelet Count Pending Mean Platelet Volume Pending Neutrophils (%) (Auto) Pending Lymphocytes (%) (Auto) Pending Monocytes (%) (Auto) Pending Eosinophils (%) (Auto) Pending Basophils (%) (Auto) Pending Chemistry Test 11/29/17 06:05 Sodium Level Pending Potassium Level Pending Chloride Level Pending Carbon Dioxide Level Pending Blood Urea Nitrogen Pending Creatinine Pending Estimat Glomerular Filtration Rate Pending Glucose Level Pending Calcium Level Pending Total Bilirubin Pending Aspartate Amino Transf (AST/SGOT) Pending Alanine Aminotransferase (ALT/SGPT) Pending Alkaline Phosphatase Pending Total Protein Pending Albumin Pending Globulin Pending Risk Assessment & Plan Assessment: asa3 Plan: mac Status Change Before Surgery: No Pre-Antibiotics Drug: MAR Muhammad Nov 29, 2017 07:55
[2017-11-29 07:59] LABS: HEMATOCRIT 29.8 % (42.0-52.0); HEMOGLOBIN 9.7 G/DL (14.2-18.0); MEAN CORPUSCULAR VOLUME 81 FL (80-99); PLATELET COUNT 205 K/UL (150-450); RED BLOOD COUNT 3.69 M/UL (4.70-6.10); WHITE BLOOD COUNT 14.4 K/UL (4.8-10.8)
[2017-11-29 08:08] LABS: ALANINE AMINOTRANSFERASE 187 U/L (12-78); ALBUMIN 2.2 G/DL (3.4-5.0); ALBUMIN/GLOBULIN RATIO 0.5 (1.0-2.7); ALKALINE PHOSPHATASE 205 U/L (46-116); ANION GAP 7 mmol/L (5-15); ASPARTATE AMINO TRANSFERASE 108 U/L (15-37); BILIRUBIN,TOTAL 17.9 MG/DL (0.2-1.0); BLOOD UREA NITROGEN 11 mg/dL (7-18); CALCIUM 9.7 MG/DL (8.5-10.1); CARBON DIOXIDE 24 MMOL/L (21-32); CHLORIDE 105 MMOL/L (98-107); CREATININE 0.8 MG/DL (0.55-1.30); POTASSIUM 4.3 MMOL/L (3.5-5.1); SODIUM 136 MMOL/L (136-145)
[2017-11-29 08:09] LABS: BILIRUBIN,DIRECT 14.5 MG/DL (0.0-0.3)
--- NOTE | 2017-11-29 10:27 | Pre-Procedure Note/Attestation ---
Pre-Procedure Note/Attestation Complete Prior to Procedure Planned Procedure: not applicable Procedure Narrative: eus/fna Indications for Procedure Pre-Operative Diagnosis: jaundice Attestation I attest that I discussed the nature of the procedure; its benefits; risks and complications; and alternatives (and the risks and benefits of such alternatives ), prior to the procedure, with the patient (or the patient's legal community engagement representative). I attest that, if there was a reasonable possibility of needing a blood transfusion, the patient (or the patient's legal community engagement representative) was given the [facility] standardized written summary, pursuant to the Thierno Rincon Blood Safety Act ([place] Health and Safety Code # 1645, as amended). I attest that I re-evaluated the patient just prior to the surgery and that there has been no change in the patient's H&P, except as documented below: DANO COLEMAN Nov 29, 2017 10:27
--- NOTE | 2017-11-29 10:35 | Cardiology Report ---
APPROVED REPORT EXAM: Two-dimensional and M-mode echocardiogram with Doppler and color Doppler. INDICATION Altered LOC M-Mode DIMENSIONS IVSd1.4 (0.7-1.1cm)Left Atrium (MM)3.6 (1.6-4.0cm) LVDd4.5 (3.5-5.6cm)Aortic Root3.3 (2.0-3.7cm) PWd0.9 (0.7-1.1cm)Aortic Cusp Exc.1.9 (1.5-2.0cm) LVDs2.5 (2.5-4.0cm) PWs2.0 cm Technically difficult study due to respiration. Study quality precludes accurate assessment of regional wall motion. Normal left ventricular chamber size, systolic function and wall motion to extent visualized. Left ventricular ejection fraction estimated to be 55 %. Mild left ventricular hypertrophy. Anterior Echo-free space, may be due to pericardial fat or effusion. Mild right atrial enlargement. Left atrial chamber sizes is within normal limits. Right ventricular chamber sizes is within normal limits. Focal aortic valve sclerosis with adequate cusp excursion. Mildly thickened mitral valve leaflets with normal excursion. Mild mitral annulus and aortic root calcification. Pulmonic valve not visualized. Normal tricuspid valve structure. IVC is normal in size with physiological collapse. A color flow and spectral Doppler study was performed and revealed: Mild aortic insufficiency. Mild mitral regurgitation. Mitral diastolic velocities suggest mild left ventricular diastolic dysfunction (Grade I). Trace tricuspid regurgitation. Tricuspid systolic velocities suggests peak right ventricular systolic pressure of 19 mmHg.
[2017-11-29] MEDS ORDERED: Propofol 200mg/20ml IV ONE (11:30)
[2017-11-29] MEDS ORDERED: Lidocaine 1% MPF 10mg/ml 5ml ONE (11:30)
[2017-11-29] MEDS ORDERED: NS 500ML IV ONE (11:35)
[2017-11-29] MEDS ORDERED: Heplock Flush 100 units/ml 3 ml syr ONE (12:09)
[2017-11-29] MEDS ORDERED: fentaNYL 100 mcg/2 mL IV PRN (12:15)
[2017-11-29] MEDS ORDERED: DiphenhydrAMINE 50mg/ml Inj IVP PRN (12:15)
[2017-11-29] MEDS ORDERED: Midazolam 2mg/2ml Inj IVP PRN (12:15)
[2017-11-29] MEDS ORDERED: Atropine Inj 1mg/10ml Syr IV PRN (12:15)
--- NOTE | 2017-11-29 13:15 | Endoscopy Procedure Note ---
Endoscopy Procedure Note Indication for Procedure: juandice Procedures Performed: EGD, other - EUS Operative Findings/Diagnosis: dilated CBD/pancreatic head mass Specimen: yes Pt Tolerated Procedure Well: Yes Estimated Blood Loss: none Anesthesiologist: edward Anesthesia: MAC Implant(s) used?: No 50 yrs or older w/o bx or poly: Not Applicable 10yrs. F/U not recommended: Not Applicable DANO COLEMAN Nov 29, 2017 13:15
[2017-11-29] MEDS: cefTRIAXone 1 GM in NS 55 ML IVPB SCH (14:21)
--- NOTE | 2017-11-29 17:28 | Immediate Post-Op Evaluation ---
Immediate Post-Op Evalulation Immediate Post-Op Evalulation Procedure: egd/eus Date of Evaluation: Nov 29, 2017 Time of Evaluation: 13:17 IV Fluids: 650ml 0.9ns Blood Products: none Estimated Blood Loss: negligible Blood Pressure Systolic: 150 Blood Pressure Diastolic: 83 Pulse Rate: 72 Respiratory Rate: 18 O2 Sat by Pulse Oximetry: 100 Temperature (Fahrenheit): 97.9 Pain Score (1-10): 0 Nausea: No Vomiting: No Complications none Patient Status: awake, reacts, patent Hydration Status: adequate Drug: MAR Muhammad Nov 29, 2017 17:28
--- NOTE | 2017-11-29 17:30 | 48 Hour Post Anesthesia Eval ---
Post Anesthesia Evaluation Procedure: egd/eus Date of Evaluation: Nov 29, 2017 Time of Evaluation: 13:19 Blood Pressure Systolic: 152 0: 83 Pulse Rate: 68 Respiratory Rate: 18 Temperature (Fahrenheit): 97.9 O2 Sat by Pulse Oximetry: 100 Airway: patent Nausea: No Vomiting: No Pain Intensity: 0 Hydration Status: adequate Cardiopulmonary Status: stable Mental Status/LOC: patient returned to baseline Post-Anesthesia Complications: none Follow-up care needed: N/A MAR MILLER Nov 29, 2017 17:30
--- NOTE | 2017-11-29 23:00 | Progress Note ---
DATE: 11/28/2017 SUBJECTIVE: The patient is calm, cooperative. No behavioral issues. She still presents with depressed mood. No energy minimizing symptoms. He is still denying any psychiatric history, has anxiety, sometimes difficulty sleeping, compliant with his medication. MENTAL STATUS EXAMINATION: The patient is alert and oriented times self, place, and situation he is in. Mood is depressed. Affect is flat, congruent with mood. Thought process, 00:54. Thought content, no suicidal or homicidal ideation. Cognition is intact. Insight and judgment fair. ASSESSMENT: 1. Major depressive disorder. 2. Anxiety disorder. PLAN: 1. We will continue the Lexapro. 2. We will continue follow and readjust the medications. Kyler Schumacher M.D. DR: CAITLIN JOB#: [id number] CC:
--- NOTE | 2017-11-29 23:15 | Progress Note ---
DATE: 11/29/2017 SUBJECTIVE: The patient was found in bed, complaining of back pain, manageable. We discussed about his social support. He stated he is doing fine and he does not need anybody's support. The patient is having depressed mood, hopelessness, helplessness, compliant with Lexapro. No side effects from Lexapro. MENTAL STATUS EXAMINATION: The patient is alert and oriented times self, place, and situation he is in. Mood is depressed. Affect is flat, congruent with mood and appropriate. Thought process is manic. Thought content, no suicidal or homicidal ideations. ASSESSMENT: AXIS I Major depressive disorder. AXIS II Deferred. AXIS III As above. AXIS IV Low. AXIS V Global assessment of functioning is 50. PLAN: 1. We will continue Lexapro 10 mg in the morning. 2. We will continue follow and readjust the medications. Kyler Schumacher M.D. DR: CAITLIN JOB#: [id number] CC:
--- NOTE | 2017-11-29 23:23 | General Progress Note ---
Assessment/Plan Assessment/Plan Assessment - Biliary dilation - Head of pancreas mass - anemia - Leukocytosis Recommendations - check tumor markers - f/u path - watch WBC - surgical consultation Subjective Allergies: Coded Allergies: No Known Allergies (Unverified , 11/26/17) Subjective above noted seen earlier today no abdominal complaints EUS today Objective Last 24 Hour Vital Signs Date Time Temp Pulse Resp B/P (MAP) Pulse Ox O2 Delivery O2 Flow Rate FiO2 11/29/17 20:12 97.7 92 18 149/77 99 11/29/17 17:30 68 18 100 11/29/17 17:28 72 18 100 11/29/17 16:20 98.1 84 18 153/86 98 Room Air 11/29/17 13:45 97.4 74 22 155/85 97 Room Air 11/29/17 13:30 74 24 146/80 100 Nasal Cannula 3.0 11/29/17 13:20 70 25 153/81 100 Nasal Cannula 3.0 11/29/17 13:15 68 23 152/83 100 Nasal Cannula 3.0 11/29/17 13:10 77 18 151/94 100 Nasal Cannula 3.0 11/29/17 13:05 97.9 70 22 156/83 100 Nasal Cannula 3.0 11/29/17 08:18 97.7 93 18 152/78 100 Room Air 11/29/17 04:00 97.5 86 18 146/79 98 11/29/17 00:00 97.9 78 18 137/80 97 Intake and Output 11/28/17 11/29/17 19:00 07:00 Intake Total 1300 ml 60 ml Output Total 300 ml Balance 1300 ml -240 ml Intake Oral 640 ml IV Total 660 ml 60 ml Output Urine Total 300 ml # Voids 3 # Bowel Movements 3 Laboratory Tests 11/29/17 06:05: White Blood Count 14.4#H, Red Blood Count 3.69L, Hemoglobin 9.7L, Hematocrit 29.8L, Mean Corpuscular Volume 81, Mean Corpuscular Hemoglobin 26.2L, Mean Corpuscular Hemoglobin Concent 32.5, Red Cell Distribution Width 14.0, Platelet Count 205, Mean Platelet Volume 10.1, Neutrophils (%) (Auto) , Lymphocytes (%) ( Auto) , Monocytes (%) (Auto) , Eosinophils (%) (Auto) , Basophils (%) (Auto) , Differential Total Cells Counted 100, Neutrophils % (Manual) 72, Lymphocytes % ( Manual) 20, Monocytes % (Manual) 5, Eosinophils % (Manual) 2, Basophils % ( Manual) 0, Band Neutrophils 1, Platelet Estimate Adequate, Platelet Morphology Normal, Hypochromasia 2+, Poikilocytosis 2+, Anisocytosis 2+, Microcytosis 3+, Target Cells 3+, Sodium Level 136, Potassium Level 4.3, Chloride Level 105, Carbon Dioxide Level 24, Anion Gap 7, Blood Urea Nitrogen 11, Creatinine 0.8, Estimat Glomerular Filtration Rate , Glucose Level 87, Calcium Level 9.7, Total Bilirubin 17.9H, Direct Bilirubin 14.5H, Aspartate Amino Transf (AST/SGOT) 108H , Alanine Aminotransferase (ALT/SGPT) 187H, Alkaline Phosphatase 205H, Total Protein 6.7, Albumin 2.2L, Globulin 4.5, Albumin/Globulin Ratio 0.5L 11/29/17 14:10: Immunoglobulin G [Pending], Immunoglobulin G1 [Pending], Immunoglobulin G2 [ Pending], Immunoglobulin G3 [Pending], Immunoglobulin G4 [Pending], Anti- Nuclear Antibody Screen [Pending] Height (Feet): 6 Height (Inches): 3.00 Weight (Pounds): 149 Objective WDWN AA man NCAT supple CTA RRR soft ND NT no edema SUSSY BAUTISTA Nov 29, 2017 23:23
[2017-11-30] VITALS (7 sets, daily range): BP systolic 124–153; BP diastolic 68–83
--- NOTE | 2017-11-30 02:30 | Procedure Note ---
DATE OF PROCEDURE: 11/29/2017 SURGEON: Yeyo Terrazas M.D. PROCEDURE: Upper endoscopy with biopsy, endoscopic ultrasound with FNA. ANESTHESIA: Karen Rondon M.D. INSTRUMENT: Olympus adult flexible upper endoscope. INDICATION: Jaundice. REASON FOR PROCEDURE: The procedure, risks, benefits, and possible consequences, including hemorrhage, aspiration, perforation and infection, and alternative treatments, were explained to the patient/legal guardian by Dr. Yeyo Terrazas and the patient/legal guardian understood and accepted these risks. DESCRIPTION OF PROCEDURE: After informed consent was obtained and the patient was adequately sedated, Olympus upper endoscope was advanced from mouth into the second portion of duodenum and retroflexion was then performed in the stomach. The patient had a type of gastric surgery with preserved antrum and body. Also, history of peptic ulcer disease. Random biopsy from antrum and body was obtained to rule out H. pylori infection. At this time, the upper endoscope was retrieved. EUS radial scope was introduced. Starting scanning at GE junction, left adrenal gland was seen without any obvious pathology. No obvious enlarged celiac axis lymphadenopathy was seen. Pancreatic parenchyma, the body and tail looked within normal limits. Then, the scope was advanced into the duodenal bulb and second portion of duodenum where the head of the pancreas was carefully examined. The patient had severe dilated common bile duct to about 1.4 cm and also dilated intrahepatic duct. There was a stricture in the mid common bile duct. Then, there was a narrowing right at the opening of the ampulla with some sludge sitting in the distal common bile duct above the obstruction. This area was then infiltrated with about 3 cm hypoechoic lesions suspicious for malignancy. At this time, the EUS radial was removed and linear was introduced. Using a 22-gauge needle, three passes to this area was obtained and tissue was sent to the pathologist. SUMMARY OF FINDINGS: 1. Prior history of gastric surgery with preserved antrum. 2. Gastritis, status post biopsy. 3. Severely dilated common bile duct with a stricture in the mid common bile duct and sludge in the distal common bile duct, this may be a sludge, may be involvement of tumor into the common bile duct . 4. A 3 cm hypoechoic lesion in the head of the pancreas, highly suspicious for malignancy, status post fine needle aspiration x3. RECOMMENDATIONS: Follow FNA results and treat accordingly. CA 19-9 and CEA is pending. We also going to order IgG subclass 4 and also ERIC. Plan to do an ERCP and drainage given bilirubin of 18. I want to thank Dr. Jose for this kind referral. Yeyo Terrazas M.D. DR: LUIS A JOB#: [id number] CC: Kasandra Jose M.D.; Fax#: [phone]
[2017-11-30] MEDS ORDERED: Indomethacin 50mg Supp ONE (06:51)
[2017-11-30] MEDS ORDERED: Iothalamate Meglumine 60% 30ML INJ ONE (06:51)
[2017-11-30] MEDS ORDERED: Lidocaine 1% MPF 10mg/ml 5ml ONE (07:00)
[2017-11-30] MEDS ORDERED: Midazolam 2mg/2ml Inj ONE (07:00)
[2017-11-30] MEDS ORDERED: LR 1000ml ONE (07:00)
[2017-11-30] MEDS ORDERED: Propofol 200mg/20ml IV ONE ×2 (07:00)
[2017-11-30] MEDS ORDERED: fentaNYL 100 mcg/2 mL IV ONE (07:00)
[2017-11-30] MEDS ORDERED: Metoclopramide 10mg/2ml Inj ONE (07:00)
--- NOTE | 2017-11-30 07:11 | Pre-Procedure Note/Attestation ---
Pre-Procedure Note/Attestation Complete Prior to Procedure Procedure Narrative: ercp Indications for Procedure Pre-Operative Diagnosis: jaundice Attestation I attest that I discussed the nature of the procedure; its benefits; risks and complications; and alternatives (and the risks and benefits of such alternatives ), prior to the procedure, with the patient (or the patient's legal employee representative). I attest that, if there was a reasonable possibility of needing a blood transfusion, the patient (or the patient's legal employee representative) was given the [facility] standardized written summary, pursuant to the Thierno Oscar Blood Safety Act ([place] Health and Safety Code # 1645, as amended). I attest that I re-evaluated the patient just prior to the surgery and that there has been no change in the patient's H&P, except as documented below: DANO COLEMAN Nov 30, 2017 07:11
[2017-11-30] MEDS ORDERED: Tubing IV Extension IV ONE (07:15)
[2017-11-30] MEDS ORDERED: fentaNYL 100 mcg/2 mL IV PRN ×2 (07:30→09:30)
[2017-11-30] MEDS ORDERED: Glucagon 1mg Inj ONE (07:36)
--- NOTE | 2017-11-30 07:36 | Anethesia Preoperative Eval ---
Anesthesia Pre-op PMH/ROS General Date of Evaluation: Nov 30, 2017 Time of Evaluation: 07:34 Anesthesiologist: kiel ASA Score: ASA 3 Mallampati Score Class I : Soft palate, uvula, fauces, pillars visible Class II: Soft palate, uvula, fauces visible Class III: Soft palate, base of uvula visible Class IV: Only hard plate visible Mallampati Classification: Class II Surgeon: azul Diagnosis: dilated common bile duct Surgical Procedure: ERCP Anesthesia History: none Family History: no anesthesia problems Allergies: Coded Allergies: No Known Allergies (Unverified , 11/26/17) Medications: see eMAR Past Medical History Cardiovascular: Denies: HTN, CAD, [place], valve dz, arrhythmia, other Pulmonary: Denies: asthma, COPD, RAJAN, other Gastrointestinal/Genitourinary: Reports: GERD, other - dilated common bile duct Neurologic/Psychiatric: Denies: dementia, CVA, depression/anxiety, TIA, other Endocrine: Denies: DM, hypothyroidism, steroids, other HEENT: Denies: cataract (L), cataract (R), glaucoma, [place] (L), [place] (R), other Hematology/Immune: Reports: anemia, other - failure to thrive; mal nutrition, Denies: DVT, bleeding disorder Musculoskeletal/Integumentary: Denies: OA, RA, DJD, DDD, edema, other Other: other - prostate ca Anesthesia Pre-op Phys. Exam Physician Exam Last Vital Signs Date Time Temp Pulse Resp B/P (MAP) Pulse Ox O2 Delivery O2 Flow Rate FiO2 11/29/17 20:12 97.7 92 18 149/77 99 11/29/17 20:12 Room Air 11/29/17 13:30 3.0 Constitutional: NAD Neurologic: CN 2-12 intact Cardiovascular: other - sr with pvc Respiratory: CTA Gastrointestinal: S/NT/ND Airway Exam Mallampati Score: Class II MO: limited Neck: normal TMD: 2fb ROM: limited Dentures: upper, lower Anesthesia Pre-op A/P Labs Hematology Test 11/30/17 05:25 White Blood Count Pending Red Blood Count Pending Hemoglobin Pending Hematocrit Pending Mean Corpuscular Volume Pending Mean Corpuscular Hemoglobin Pending Mean Corpuscular Hemoglobin Concent Pending Red Cell Distribution Width Pending Platelet Count Pending Mean Platelet Volume Pending Neutrophils (%) (Auto) Pending Lymphocytes (%) (Auto) Pending Monocytes (%) (Auto) Pending Eosinophils (%) (Auto) Pending Basophils (%) (Auto) Pending Chemistry Test 11/30/17 05:25 Sodium Level Pending Potassium Level Pending Chloride Level Pending Carbon Dioxide Level Pending Blood Urea Nitrogen Pending Creatinine Pending Estimat Glomerular Filtration Rate Pending Glucose Level Pending Calcium Level Pending Magnesium Level Pending Total Bilirubin Pending Aspartate Amino Transf (AST/SGOT) Pending Alanine Aminotransferase (ALT/SGPT) Pending Alkaline Phosphatase Pending Total Protein Pending Albumin Pending Globulin Pending Amylase Level Pending Lipase Pending Studies Pre-op Studies: EKG - sr Risk Assessment & Plan Plan: mac Pre-Antibiotics Drug: none LALO HANKS CRNA Nov 30, 2017 07:36
[2017-11-30 07:39] LABS: BASOPHILS % (AUTO) 0.5 % (0.0-2.0); EOSINOPHILS % (AUTO) 0.3 % (0.0-3.0); HEMATOCRIT 31.6 % (42.0-52.0); LYMPHOCYTES % (AUTO) 8.2 % (20.0-45.0); MEAN CORPUSCULAR VOLUME 79 FL (80-99); MONOCYTES % (AUTO) 7.6 % (1.0-10.0); NEUTROPHILS % (AUTO) 83.5 % (45.0-75.0); PLATELET COUNT 196 K/UL (150-450); RED BLOOD COUNT 3.97 M/UL (4.70-6.10); RED CELL DISTRIBUTION WIDTH 13.8 % (11.6-14.8)
[2017-11-30 07:58] LABS: ALANINE AMINOTRANSFERASE 177 U/L (12-78); ALBUMIN 2.2 G/DL (3.4-5.0); ALBUMIN/GLOBULIN RATIO 0.4 (1.0-2.7); ALKALINE PHOSPHATASE 221 U/L (46-116); AMYLASE 144 U/L (25-115); ANION GAP 10 mmol/L (5-15); ASPARTATE AMINO TRANSFERASE 96 U/L (15-37); BILIRUBIN,TOTAL 19.8 MG/DL (0.2-1.0); BLOOD UREA NITROGEN 12 mg/dL (7-18); CALCIUM 9.7 MG/DL (8.5-10.1); CARBON DIOXIDE 25 MMOL/L (21-32); CHLORIDE 102 MMOL/L (98-107); CREATININE 0.9 MG/DL (0.55-1.30); POTASSIUM 3.7 MMOL/L (3.5-5.1); SODIUM 136 MMOL/L (136-145)
[2017-11-30] MEDS ORDERED: Indomethacin 50mg Supp RECTAL ONE (08:00)
[2017-11-30] MEDS ORDERED: Ketorolac 30mg Inj IV PRN (09:30)
--- NOTE | 2017-11-30 09:31 | Immediate Post-Op Evaluation ---
Immediate Post-Op Evalulation Immediate Post-Op Evalulation Procedure: ercp Date of Evaluation: Nov 30, 2017 Time of Evaluation: 09:30 Nausea: No Vomiting: No Gael Noel MD Nov 30, 2017 09:31
--- NOTE | 2017-11-30 10:45 | Progress Note ---
DATE: 11/29/2017 INTERNAL MEDICINE PROGRESS NOTE SUBJECTIVE: The patient has no new complaints. The patient had an EUS and biopsy today. There was evidence of a pancreatic mass. OBJECTIVE: VITAL SIGNS: Stable. Blood pressure 149/77, pulse 92, and respirations 18. LUNGS: Clear. CARDIAC: Regular. Normal S1 and S2. ABDOMEN: Slightly distended, but soft. EXTREMITIES: No edema. LABORATORY DATA: White count 14 and hemoglobin 9.7. Albumin 2.2. BUN 11 and creatinine 0.8. IMPRESSION: 1. Transaminitis. 2. Severe protein-calorie malnutrition. 3. Pancreatic mass. 4. Leukocytosis. 5. Anemia. 6. Failure to thrive. 7. History of prostate cancer. PLAN: 1. Follow up biopsy results. 2. Repeat CBC. 3. Consider empiric antibiotic with further rise in white count. 4. Discharge planning to follow. 5. Depending on findings, we will address surgical option. Perry Desai M.D. : DENISA JOB#: [id number] CC:
--- NOTE | 2017-11-30 12:35 | Endoscopy Procedure Note ---
Endoscopy Procedure Note Indication for Procedure: juandice Procedures Performed: ERCP Operative Findings/Diagnosis: biliary stricture Specimen: none Pt Tolerated Procedure Well: Yes Estimated Blood Loss: none Anesthesiologist: lanre Anesthesia: MAC Implant(s) used?: No 50 yrs or older w/o bx or poly: Not Applicable 10yrs. F/U not recommended: Not Applicable DANO COLEMAN Nov 30, 2017 12:35
--- NOTE | 2017-11-30 12:51 | 48 Hour Post Anesthesia Eval ---
Post Anesthesia Evaluation Procedure: ercp Date of Evaluation: Nov 30, 2017 Time of Evaluation: 12:50 Blood Pressure Systolic: 137 0: 75 Pulse Rate: 101 Respiratory Rate: 14 O2 Sat by Pulse Oximetry: 100 Airway: patent Nausea: No Vomiting: No Hydration Status: adequate Cardiopulmonary Status: stable Mental Status/LOC: patient returned to baseline Post-Anesthesia Complications: none Follow-up care needed: N/A LALO HANKS CRNA Nov 30, 2017 12:51
[2017-11-30] MEDS: cefTRIAXone 1 GM in NS 55 ML IVPB SCH (12:58)
--- NOTE | 2017-11-30 13:09 | Diagnostic Imaging Report ---
Indication: Biliary obstruction Technique: Intraoperative images Comparison: Reference made to CT scan dated 11/27/2017 Findings: Intraoperative images demonstrates opacification of dilated common hepatic duct, subsequent balloon dilatation of common bile duct stricture, placement of internal biliary stent Impression: Intraoperative imaging, as described
--- NOTE | 2017-11-30 23:20 | General Progress Note ---
Assessment/Plan Assessment/Plan Assessment - Biliary dilation - Head of pancreas mass --> s/p EUS/FNA and now ERCP/Stent - anemia - Leukocytosis - better Recommendations - check tumor markers - f/u path - watch WBC - 10 days of empiric abx - surgical consultation --> Would arrange for whipples at [facility] Subjective Allergies: Coded Allergies: No Known Allergies (Unverified , 11/26/17) Subjective above noted seen earlier today s/p ERCP and stent placement this am on abx since yesterday WBC lower Objective Last 24 Hour Vital Signs Date Time Temp Pulse Resp B/P (MAP) Pulse Ox O2 Delivery O2 Flow Rate FiO2 11/30/17 20:00 97.7 92 16 139/75 99 11/30/17 20:00 99 Room Air 11/30/17 16:27 98.2 97 18 153/83 98 Room Air 11/30/17 12:51 101 14 100 11/30/17 12:11 97.3 104 18 137/75 97 Room Air 11/30/17 09:48 98.0 99 20 125/70 98 Room Air 11/30/17 09:40 98 20 130/68 98 Nasal Cannula 3.0 11/30/17 09:35 98 20 125/70 98 Nasal Cannula 3.0 11/30/17 09:30 97.6 99 20 124/74 98 Nasal Cannula 3.0 Intake and Output 11/29/17 11/30/17 19:00 07:00 Intake Total 1355 ml 660 ml Output Total 600 ml Balance 755 ml 660 ml IV Total 1355 ml 660 ml Output Urine Total 600 ml Estimated Blood Loss 0 ml # Voids 3 # Bowel Movements 2 Laboratory Tests 11/30/17 05:25: White Blood Count 12.0H, Red Blood Count 3.97L, Hemoglobin 10.0L, Hematocrit 31.6L, Mean Corpuscular Volume 79L, Mean Corpuscular Hemoglobin 25.2L, Mean Corpuscular Hemoglobin Concent 31.7L, Red Cell Distribution Width 13.8, Platelet Count 196, Mean Platelet Volume 10.1, Neutrophils (%) (Auto) 83.5H, Lymphocytes (%) (Auto) 8.2L, Monocytes (%) (Auto) 7.6, Eosinophils (%) (Auto) 0.3, Basophils (%) (Auto) 0.5, Sodium Level 136, Potassium Level 3.7, Chloride Level 102, Carbon Dioxide Level 25, Anion Gap 10, Blood Urea Nitrogen 12, Creatinine 0.9, Estimat Glomerular Filtration Rate , Glucose Level 79, Calcium Level 9.7, Magnesium Level 1.3L, Total Bilirubin 19.8H, Direct Bilirubin 16.0H, Aspartate Amino Transf (AST/SGOT) 96H, Alanine Aminotransferase (ALT/SGPT) 177H , Alkaline Phosphatase 221H, Total Protein 7.2, Albumin 2.2L, Globulin 5.0, Albumin/Globulin Ratio 0.4L, Amylase Level 144H, Lipase 669H Height (Feet): 6 Height (Inches): 6.00 Weight (Pounds): 149 Objective WDWN AA man NCAT supple CTA RRR soft ND NT no edema SUSSY BAUTISTA Nov 30, 2017 23:20
[2017-12-01] VITALS: BP 142/73
--- NOTE | 2017-12-01 00:30 | Progress Note ---
DATE: 11/30/2017 SUBJECTIVE: The patient is cooperative and pleasant. He presents with depressed mood, minimizing symptoms. He has low energy and anhedonia, worthlessness, and hopelessness. No suicidal or homicidal ideation. MENTAL STATUS EXAMINATION: The patient is alert and oriented times self, place, and situation he is in. Mood is depressed. Affect is constricted, congruent with mood. Thought process is linear. Thought content, no suicidal or homicidal ideation. ASSESSMENT: Major depressive disorder. PLAN: 1. The patient will be continued on the Lexapro. 2. Provide the patient with supportive therapy and reality orientation. Kyler Schumacher M.D. DR: ALEXANDER JOB#: [id number] CC:
[2017-12-01 04:00] VITALS: BP 135/73
--- NOTE | 2017-12-01 04:15 | Progress Note ---
DATE: 11/30/2017 SUBJECTIVE: The patient is status post biopsy of pancreatic mass and endoscopic retrograde cholangiopancreatography with stent placement. He is on IV antibiotics. Oral intake is fair. PHYSICAL EXAMINATION: VITAL SIGNS: Blood pressure 139/76, pulse 92, respiratory rate 16, and afebrile. LUNGS: Good breath sounds. CARDIAC: Regular. Normal S1, S2. ABDOMEN: Slightly distended, but soft. EXTREMITIES: Without edema. LABORATORY DATA: White count 12, hemoglobin 10, magnesium 1.3, potassium 3.7, BUN 12, and creatinine 0.9. Tumor markers are pending. PLAN: 1. IV magnesium replacement. 2. IV antibiotics. 3. Await biopsy results. 4. Discontinue intravenous fluids. 5. Encourage oral intake. 6. Discharge planning to follow. Perry Desai M.D. DR: RUFINO JOB#: [id number] CC:
[2017-12-01 08:00] VITALS: BP 131/70
--- NOTE | 2017-12-01 08:15 | Procedure Note ---
DATE OF PROCEDURE: 11/30/2017 SURGEON: Yeyo Terrazas M.D. PROCEDURE: Endoscopic retrograde cholangiopancreatography with sphincterotomy, dilatation, and stent placement. ANESTHESIA: Per CIRCLE SHEAR OPERATOR, Meghana Tarrikaitlynn. INSTRUMENT: Olympus ERCP scope. INDICATION: Jaundice. REASON FOR PROCEDURE: The procedure, risks, benefits, and possible consequences, including hemorrhage, aspiration, perforation and infection, and alternative treatments, were explained to the patient/legal guardian by Dr. Yeyo Terrazas and the patient/legal guardian understood and accepted these risks. DESCRIPTION OF PROCEDURE: After informed consent was obtained and the patient was adequately sedated, the ERCP was advanced from the mouth into the second portion of duodenum. This was extremely challenging case. It took over two hours. First, we tried to cannulate with a sphincterotome, which was unsuccessful. Then, we used a 5/4/3 catheter which was unsuccessful. Then, we used a needle knife to cut. First, we got into the pancreatic duct twice with wire, we did not inject. Then, after multiple attempts and cutting with needle knife slowly and then try and cutting in slowly trial with different catheters including 5/4/3 and sphincterotome and minitome. Finally, we were able to cannulate the common bile duct. There was a severe long stricture in the distal common bile duct. This stricture was over 4 cm. Then, there was a little bit of opening and above there was another stricture and then dilated the common bile duct proximal to that. The most lateral part of common bile duct was roughly about 14 mm. This was a very challenging case because he had a hard time even after spending 60 minutes cannulation, still it was difficult to maintain in position. We first dilated the stricture area with a 6 cm x 4 cm balloon and then tried to put a 10-Andorran 9 cm stent, which was unsuccessful. The stent would not go up. Then, we dilated again with bigger balloon. We used 8 mm balloon at this time and dilated both the stricture area and ampulla. We tried to remove stent back again, again 10-Andorran at this time, 10-Andorran 7 cm was not successful. Again, we could not get it all the way up. Then, we switched to the 7-Andorran 7 cm stent and that one was successfully placed. Post stent placement, there was a good flow of bile through the stent into the duodenal lumen. The patient tolerated the procedure very well without any complication. SUMMARY OF FINDINGS: 1. 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 I am not sure if this is malignancy versus autoimmune cholangiopathy. 2. Status post endoscopic retrograde cholangiopancreatography with needle knife printer assistant sphincterotomy, balloon dilation, and stent placement. RECOMMENDATIONS: We will follow with the pathology. Biopsy from FNA yesterday sent to serology for IgG4 and ERIC. We will check the liver function tests for tomorrow. We will make further recommendation after the results of blood test are back tomorrow. I want to thank, Dr. Jose, for this kind referral. Yeyo Terrazas M.D. DR: FILIPPO JOB#: [id number] CC: Kasandra Jose M.D.; Fax#: [phone] [facility]
[2017-12-01 09:22] LABS: HEMATOCRIT 32.5 % (42.0-52.0); HEMOGLOBIN 10.2 G/DL (14.2-18.0); MEAN CORPUSCULAR VOLUME 81 FL (80-99); PLATELET COUNT 127 K/UL (150-450); RED CELL DISTRIBUTION WIDTH 14.4 % (11.6-14.8); WHITE BLOOD COUNT 14.5 K/UL (4.8-10.8)
[2017-12-01 09:47] LABS: ALANINE AMINOTRANSFERASE 154 U/L (12-78); ALBUMIN 1.9 G/DL (3.4-5.0); ALBUMIN/GLOBULIN RATIO 0.4 (1.0-2.7); ALKALINE PHOSPHATASE 198 U/L (46-116); ANION GAP 7 mmol/L (5-15); ASPARTATE AMINO TRANSFERASE 101 U/L (15-37); BILIRUBIN,TOTAL 19.9 MG/DL (0.2-1.0); BLOOD UREA NITROGEN 24 mg/dL (7-18); CARBON DIOXIDE 23 MMOL/L (21-32); CHLORIDE 105 MMOL/L (98-107); CREATININE 0.9 MG/DL (0.55-1.30); SODIUM 135 MMOL/L (136-145)
[2017-12-01 09:49] LABS: BILIRUBIN,DIRECT 14.5 MG/DL (0.0-0.3)
[2017-12-01 11:40] VITALS: BP 108/61
[2017-12-01] MEDS: cefTRIAXone 1 GM in NS 55 ML IVPB SCH (12:50)
[2017-12-01 16:00] VITALS: BP 107/58
--- NOTE | 2017-12-01 21:47 | General Progress Note ---
Assessment/Plan Assessment/Plan Assessment - Biliary dilation - Head of pancreas mass --> adenocarcinoma - anemia - Leukocytosis - advanced prostate CA Recommendations - Follow bili - should drop after stenting - watch WBC - 10 days of empiric abx - change to zosyn - surgical and oncology opinion - push po Subjective Allergies: Coded Allergies: No Known Allergies (Unverified , 11/26/17) Subjective above noted Feels OK no new complaints prelim pathology report from pancreatic mass FNA c/w adenoCA Objective Last 24 Hour Vital Signs Date Time Temp Pulse Resp B/P (MAP) Pulse Ox O2 Delivery O2 Flow Rate FiO2 12/01/17 16:00 98.4 98 19 107/58 99 12/01/17 11:40 97.7 101 20 108/61 99 12/01/17 09:24 97.7 12/01/17 08:00 97.7 100 20 131/70 99 12/01/17 04:00 97.7 83 16 135/73 98 12/01/17 00:00 99 Room Air 12/01/17 00:00 97.0 85 16 142/73 99 Intake and Output 11/30/17 12/01/17 19:00 07:00 Intake Total 1420 ml 640 ml Output Total 100 ml Balance 1320 ml 640 ml Intake Oral 240 ml IV Total 1180 ml 640 ml Output Urine Total 100 ml # Voids 3 3 Laboratory Tests 12/01/17 07:30: White Blood Count 14.5H, Red Blood Count 4.00L, Hemoglobin 10.2L, Hematocrit 32.5L, Mean Corpuscular Volume 81, Mean Corpuscular Hemoglobin 25.5L, Mean Corpuscular Hemoglobin Concent 31.4L, Red Cell Distribution Width 14.4, Platelet Count 127L, Mean Platelet Volume 10.7H, Neutrophils (%) (Auto) , Lymphocytes (%) (Auto) , Monocytes (%) (Auto) , Eosinophils (%) (Auto) , Basophils (%) (Auto) , Differential Total Cells Counted 100, Neutrophils % ( Manual) 88H, Lymphocytes % (Manual) 10L, Monocytes % (Manual) 1, Eosinophils % ( Manual) 0, Basophils % (Manual) 0, Band Neutrophils 1, Platelet Estimate DecreasedL, Platelet Morphology Normal, Sodium Level 135L, Potassium Level 5.0, Chloride Level 105, Carbon Dioxide Level 23, Anion Gap 7, Blood Urea Nitrogen 24H, Creatinine 0.9, Estimat Glomerular Filtration Rate , Glucose Level 102, Calcium Level 10.0, Total Bilirubin 19.9H, Direct Bilirubin 14.5H, Aspartate Amino Transf (AST/SGOT) 101H, Alanine Aminotransferase (ALT/SGPT) 154H, Alkaline Phosphatase 198H, Total Protein 6.8, Albumin 1.9L, Globulin 4.9, Albumin/Globulin Ratio 0.4L Height (Feet): 6 Height (Inches): 6.00 Weight (Pounds): 149 Objective WDWN AA man NCAT supple CTA RRR soft ND NT no edema SUSSY BAUTISTA Dec 01, 2017 21:47
[2017-12-01] MEDS: Piperacillin/Tazobactam 3.375 GM in NS 110 ML IVPB SCH (23:02)
--- NOTE | 2017-12-02 01:46 | Progress Note ---
DATE: 12/01/2017 INTERNAL MEDICINE AND CARDIOLOGY PROGRESS NOTE SUBJECTIVE: The patient remains without new complaints. Mobility appears impaired due to weakness sustained since he was admitted and remains bed-bound for several days. Therapy evaluations recommend home with 24-hour assistance versus group home facility. The patient's biopsy was positive for adenocarcinoma of the pancreas. I spoke with the patient's daughter and made her aware in the context of his prostate cancer that has been metastatic and his poor performance status. It is not clear if he is a surgical candidate for a Whipple surgery. This was discussed as well. I have recommended that the patient be discharged to a group home facility for rehabilitation and while there, arrangements made for a surgical consultation at [facility] to discuss whether he is a Whipple candidate. The patient's daughter will speak with her father and finalize discharge plan tomorrow. Perry Desai M.D. DR: DENISA JOB#: [id number] CC:
[2017-12-02] MEDS: Piperacillin/Tazobactam 3.375 GM in NS 110 ML IVPB SCH ×3 (06:00→22:29)
[2017-12-02 08:00] VITALS: BP 106/60
--- NOTE | 2017-12-02 09:00 | Progress Note ---
DATE: 12/01/2017 SUBJECTIVE: The patient was in bed. OT was present. The patient participated in OT and has good hygiene. Calm and very pleasant. the patient talked about his family. The patient was concerned about his health and stated that he does not know what is going on with his health. Compliant with medications and tolerating medications. He stated that he is less anxious and is feeling better. MENTAL STATUS EXAMINATION: The patient is alert and oriented times self, place, and situation he is in. Mood is dysphoric. Affect is constricted, congruent with mood. Thought process is linear. Thought content, no suicidal or homicidal ideations. ASSESSMENT: Major depressive disorder. PLAN: 1. We will continue the Lexapro. 2. Provide the patient with supportive therapy and reality orientation. We will continue to follow and readjust the medications. Kyler Schumacher M.D. DR: DAQUAN JOB#: [id number] CC:
[2017-12-02 12:00] VITALS: BP 103/96
[2017-12-02 12:34] LABS: HEMATOCRIT 23.2 % (42.0-52.0); HEMOGLOBIN 7.4 G/DL (14.2-18.0); MEAN CORPUSCULAR VOLUME 80 FL (80-99); PLATELET COUNT 157 K/UL (150-450); RED CELL DISTRIBUTION WIDTH 14.7 % (11.6-14.8); WHITE BLOOD COUNT 10.3 K/UL (4.8-10.8)
[2017-12-02 12:39] LABS: ALANINE AMINOTRANSFERASE 114 U/L (12-78); ALBUMIN 1.7 G/DL (3.4-5.0); ALBUMIN/GLOBULIN RATIO 0.4 (1.0-2.7); ALKALINE PHOSPHATASE 159 U/L (46-116); ANION GAP 7 mmol/L (5-15); ASPARTATE AMINO TRANSFERASE 68 U/L (15-37); BILIRUBIN,DIRECT 15.7 MG/DL (0.0-0.3); BILIRUBIN,TOTAL 18.4 MG/DL (0.2-1.0); BLOOD UREA NITROGEN 35 mg/dL (7-18); CARBON DIOXIDE 25 MMOL/L (21-32); CHLORIDE 104 MMOL/L (98-107); CREATININE 1.1 MG/DL (0.55-1.30); POTASSIUM 3.7 MMOL/L (3.5-5.1); SODIUM 136 MMOL/L (136-145)
[2017-12-02 12:48] LABS: INR 1.3 (0.9-1.1)
[2017-12-02 16:00] VITALS: BP 111/63
--- NOTE | 2017-12-02 17:00 | Progress Note ---
DATE: 12/02/2017 SUBJECTIVE: The patient is calm in bed. He stated that he is confused about his current medical situation. He was anxious to find out the results. He is aware of the prostate cancer. MENTAL STATUS EXAMINATION: The patient is alert and oriented times self, place, time, and situation he is in. Mood is dysphoric. Affect is constricted. Congruent with mood. Thought process is concrete. Thought content, no suicidal or homicidal ideations. ASSESSMENT: 1. Depression. 2. Anxiety. PLAN: We will continue current medications. Kyler Schumacher M.D. DR: DAQUAN JOB#: [id number] CC:
[2017-12-02] MEDS ORDERED: Tubing IV Secondary IV ONE (17:10)
[2017-12-02 20:00] VITALS: BP_SYST 112; BP_SYST 95; BP_DIAS 51; BP_DIAS 62
--- NOTE | 2017-12-02 21:25 | General Progress Note ---
Assessment/Plan Assessment/Plan Assessment - Biliary dilation - Head of pancreas mass --> suspicious for CA - anemia - Leukocytosis - advanced prostate CA Recommendations - Follow bili - should drop after stenting - watch WBC - 10 days of empiric abx - change to zosyn - surgical and oncology opinion - push po - message left with DTR to call to discuss Subjective Allergies: Coded Allergies: No Known Allergies (Unverified , 11/26/17) Subjective above noted Feels OK no new complaints Final path report shows tissue suspicious for malignancy message left for daughters to call me re findings Objective Last 24 Hour Vital Signs Date Time Temp Pulse Resp B/P (MAP) Pulse Ox O2 Delivery O2 Flow Rate FiO2 12/02/17 16:00 97.3 97 20 111/63 97 12/02/17 12:00 97.7 99 20 103/96 95 12/02/17 09:44 98.4 12/02/17 08:00 98.1 107 20 106/60 99 Intake and Output 12/01/17 12/02/17 19:00 07:00 Intake Total 535 ml 137.5 ml Balance 535 ml 137.5 ml Intake Oral 480 ml IV Total 55 ml 137.5 ml # Voids 3 Laboratory Tests 12/02/17 11:50: White Blood Count 10.3, Red Blood Count 2.90L, Hemoglobin 7.4L, Hematocrit 23.2L , Mean Corpuscular Volume 80, Mean Corpuscular Hemoglobin 25.5L, Mean Corpuscular Hemoglobin Concent 31.9L, Red Cell Distribution Width 14.7, Platelet Count 157, Mean Platelet Volume 11.2H, Neutrophils (%) (Auto) , Lymphocytes (%) (Auto) , Monocytes (%) (Auto) , Eosinophils (%) (Auto) , Basophils (%) (Auto) , Differential Total Cells Counted 100, Neutrophils % ( Manual) 79H, Lymphocytes % (Manual) 9L, Monocytes % (Manual) 7, Eosinophils % ( Manual) 2, Basophils % (Manual) 0, Band Neutrophils 3, Platelet Estimate Adequate, Platelet Morphology Normal, Hypochromasia 1+, Anisocytosis 1+, Prothrombin Time 13.5H, Prothromb Time International Ratio 1.3H, Sodium Level 136, Potassium Level 3.7, Chloride Level 104, Carbon Dioxide Level 25, Anion Gap 7, Blood Urea Nitrogen 35H, Creatinine 1.1, Estimat Glomerular Filtration Rate , Glucose Level 94, Calcium Level 10.0, Total Bilirubin 18.4H, Direct Bilirubin 15.7H, Aspartate Amino Transf (AST/SGOT) 68H, Alanine Aminotransferase (ALT/SGPT) 114H, Alkaline Phosphatase 159H, Total Protein 5.9L , Albumin 1.7L, Globulin 4.2, Albumin/Globulin Ratio 0.4L Height (Feet): 6 Height (Inches): 6.00 Weight (Pounds): 149 Objective WDWN AA man NCAT supple CTA RRR soft ND NT no edema SUSSY BAUTISTA Dec 02, 2017 21:25
[2017-12-03] VITALS: BP 114/61
[2017-12-03 04:00] VITALS: BP 109/60
[2017-12-03] MEDS: Piperacillin/Tazobactam 3.375 GM in NS 110 ML IVPB SCH ×2 (05:53→22:18)
--- NOTE | 2017-12-03 06:00 | Progress Note ---
DATE: 12/02/2017 INTERNAL MEDICINE PROGRESS NOTE SUBJECTIVE: The patient feels better, appetite improving, no pain, no nausea or vomiting. The patient's abnormal pathology was discussed with him yesterday and his daughter. Outpatient plans surgical evaluation will follow. Based on his other malignancies and poor performance status, it remains less likely that he will be considered a candidate for a large Whipple surgery. PHYSICAL EXAMINATION: VITAL SIGNS: He is afebrile. Blood pressure 111/63, heart rate 97, and respiration 20. LUNGS: Clear. CARDIAC: Regular. No new murmur. ABDOMEN: Soft and nontender. No guarding or rebound. EXTREMITIES: No edema. LABORATORY DATA: Reviewed. Notable for white count 10 and hemoglobin 7.4. IMPRESSION: 1. Probable pancreatic cancer. 2. History of metastatic prostate cancer. 3. Resolved leukocytosis on empiric antibiotics following biliary dilation. 4. Protein-calorie malnutrition, severe with albumin 1.7. PLAN: 1. Antibiotics. 2. Nutritional support. 3. Outpatient surgical evaluation. 4. Transfuse one unit of packed red blood cells. 5. Discharge planning. Perry Desai M.D. DR: DAVID JOB#: [id number] CC:
[2017-12-03 07:16] LABS: ALANINE AMINOTRANSFERASE 103 U/L (12-78); ALBUMIN 1.5 G/DL (3.4-5.0); ALBUMIN/GLOBULIN RATIO 0.4 (1.0-2.7); ALKALINE PHOSPHATASE 150 U/L (46-116); ANION GAP 4 mmol/L (5-15); ASPARTATE AMINO TRANSFERASE 72 U/L (15-37); BILIRUBIN,TOTAL 16.6 MG/DL (0.2-1.0); BLOOD UREA NITROGEN 36 mg/dL (7-18); CALCIUM 9.6 MG/DL (8.5-10.1); CARBON DIOXIDE 28 MMOL/L (21-32); CHLORIDE 109 MMOL/L (98-107); POTASSIUM 3.7 MMOL/L (3.5-5.1); SODIUM 141 MMOL/L (136-145)
[2017-12-03 07:18] LABS: BILIRUBIN,DIRECT 14.3 MG/DL (0.0-0.3)
[2017-12-03 07:24] LABS: HEMATOCRIT 22.9 % (42.0-52.0); HEMOGLOBIN 7.5 G/DL (14.2-18.0); MEAN CORPUSCULAR VOLUME 81 FL (80-99); PLATELET COUNT 162 K/UL (150-450); RED BLOOD COUNT 2.84 M/UL (4.70-6.10); RED CELL DISTRIBUTION WIDTH 14.7 % (11.6-14.8); WHITE BLOOD COUNT 8.9 K/UL (4.8-10.8)
[2017-12-03 08:00] VITALS: BP 110/62
[2017-12-03] MEDS ORDERED: Levofloxacin 500mg tab ORAL SCH (09:00)
[2017-12-03] MEDS ORDERED: metroNIDAZOLE 500mg tab ONE ×2 (09:35→10:25)
[2017-12-03] MEDS: metroNIDAZOLE 250mg tab ORAL SCH ×2 (10:38→13:55)
[2017-12-03 12:00] VITALS: BP 109/61
[2017-12-03 15:37] VITALS: BP 112/62
--- NOTE | 2017-12-03 17:26 | General Progress Note ---
Assessment/Plan Assessment/Plan Assessment - Biliary dilation - Head of pancreas mass --> suspicious for CA - anemia - Leukocytosis - advanced prostate CA Recommendations - Follow bili - should drop after stenting - watch WBC - 10 days of empiric abx - change to zosyn - surgical and oncology opinion - push po - f/u CEA and CA 19-9 Subjective Allergies: Coded Allergies: No Known Allergies (Unverified , 11/26/17) Subjective above noted Feels OK no new complaints Final path report shows tissue suspicious for malignancy CEA and CA 19-90 sent today - pending discussed with DTR regarding all findings and plans Objective Last 24 Hour Vital Signs Date Time Temp Pulse Resp B/P (MAP) Pulse Ox O2 Delivery O2 Flow Rate FiO2 12/03/17 15:37 98.2 94 20 112/62 96 12/03/17 12:00 98.1 83 19 109/61 97 12/03/17 08:00 97.9 92 20 110/62 98 12/03/17 04:00 97.7 95 18 109/60 98 Room Air 12/03/17 00:00 99.3 97 20 114/61 99 Room Air 12/02/17 20:00 98.4 98 20 112/62 99 Room Air Intake and Output 12/02/17 12/03/17 19:00 07:00 Intake Total 145.0 ml 110.0 ml Balance 145.0 ml 110.0 ml Intake Oral 90 ml IV Total 55.0 ml 110.0 ml # Voids 3 2 Laboratory Tests 12/03/17 04:50: White Blood Count 8.9, Red Blood Count 2.84L, Hemoglobin 7.5L, Hematocrit 22.9L , Mean Corpuscular Volume 81, Mean Corpuscular Hemoglobin 26.3L, Mean Corpuscular Hemoglobin Concent 32.6, Red Cell Distribution Width 14.7, Platelet Count 162, Mean Platelet Volume 10.5H, Neutrophils (%) (Auto) , Lymphocytes (%) (Auto) , Monocytes (%) (Auto) , Eosinophils (%) (Auto) , Basophils (%) (Auto) , Differential Total Cells Counted 100, Neutrophils % (Manual) 86H, Lymphocytes % (Manual) 7L, Monocytes % (Manual) 5, Eosinophils % (Manual) 2, Basophils % ( Manual) 0, Band Neutrophils 0, Platelet Estimate Adequate, Platelet Morphology Normal, Hypochromasia 1+, Anisocytosis 1+, Target Cells Occasional, Sodium Level 141, Potassium Level 3.7, Chloride Level 109H, Carbon Dioxide Level 28, Anion Gap 4L, Blood Urea Nitrogen 36H, Creatinine 1.0, Estimat Glomerular Filtration Rate , Glucose Level 89, Calcium Level 9.6, Magnesium Level 2.0, Total Bilirubin 16.6H, Direct Bilirubin 14.3H, Aspartate Amino Transf (AST/SGOT ) 72H, Alanine Aminotransferase (ALT/SGPT) 103H, Alkaline Phosphatase 150H, Total Protein 5.6L, Albumin 1.5L, Globulin 4.1, Albumin/Globulin Ratio 0.4L Height (Feet): 6 Height (Inches): 6.00 Weight (Pounds): 149 Objective WDWN AA man NCAT supple CTA RRR soft ND NT no edema SUSSY BAUTISTA Dec 03, 2017 17:26
[2017-12-03 20:00] VITALS: BP 112/62
[2017-12-03] MEDS: metroNIDAZOLE 500mg tab ORAL SCH (22:19)
[2017-12-04] VITALS: BP 106/55
--- NOTE | 2017-12-04 03:00 | Progress Note ---
DATE: 12/03/2017 INTERNAL MEDICINE PROGRESS NOTE SUBJECTIVE: The patient with no new complaints. He is status post a unit of packed red blood cells yesterday. No signs of active bleeding noted. He is status post biliary stents. Today, hemoglobin level has only risen from 7.3 to 7.5 following one unit of packed red blood cells. OBJECTIVE: NECK: Supple. LUNGS: Clear. CARDIAC: Regular rhythm and rate. Normal S1, S2. ABDOMEN: Slightly distended, but soft. No tenderness. EXTREMITIES: No edema. IMPRESSION: 1. Biliary dilatation with pancreatic mass at the head of the pancreas suspicious for carcinoma. 2. Anemia. 3. Leukocytosis, resolving. 4. Metastatic prostate cancer. PLAN: 1. Await tumor markers. 2. Recheck hemoglobin. 3. Hold discharge in view of persistent anemia. 4. May require additional transfusion. 5. Reassess for discharge tomorrow. Perry Desai M.D. DR: Yue JOB#: [id number] CC:
[2017-12-04 04:00] VITALS: BP 105/56
[2017-12-04] MEDS: Piperacillin/Tazobactam 3.375 GM in NS 110 ML IVPB SCH ×3 (05:39→22:00)
[2017-12-04] MEDS: metroNIDAZOLE 500mg tab ORAL SCH ×3 (05:39→22:00)
[2017-12-04 08:49] VITALS: BP 123/62
[2017-12-04 09:33] LABS: HEMATOCRIT 20.9 % (42.0-52.0); MEAN CORPUSCULAR VOLUME 83 FL (80-99); PLATELET COUNT 188 K/UL (150-450); RED CELL DISTRIBUTION WIDTH 15.6 % (11.6-14.8); WHITE BLOOD COUNT 16.8 K/UL (4.8-10.8)
[2017-12-04 09:46] LABS: HEMOGLOBIN 6.7 G/DL (14.2-18.0)
[2017-12-04 11:58] VITALS: BP 118/69
[2017-12-04 16:07] VITALS: BP 123/58
--- NOTE | 2017-12-04 18:14 | General Progress Note ---
Assessment/Plan Assessment/Plan Assessment - Biliary dilation - Head of pancreas mass --> suspicious for CA - anemia - Leukocytosis - advanced prostate CA Recommendations - Follow bili - should drop after stenting - watch WBC - RBC transfusion - check stool OB - 10 days of empiric abx - change to zosyn - surgical and oncology opinion - push po - f/u CEA and CA 19-9 Subjective Allergies: Coded Allergies: No Known Allergies (Unverified , 11/26/17) Subjective above noted Feels OK no new complaints Final path report shows tissue suspicious for malignancy CEA and CA 19-90 sent today - pending Objective Last 24 Hour Vital Signs Date Time Temp Pulse Resp B/P (MAP) Pulse Ox O2 Delivery O2 Flow Rate FiO2 12/04/17 16:07 97.9 91 20 123/58 100 Room Air 12/04/17 11:58 98.2 93 20 118/69 97 12/04/17 08:49 97.7 87 20 123/62 98 12/04/17 04:00 97.2 89 19 105/56 96 Room Air 12/04/17 00:00 97.9 85 20 106/55 96 Room Air 12/03/17 20:00 97.9 94 20 112/62 97 Intake and Output 12/03/17 12/04/17 19:00 07:00 Intake Total 720 ml 110.0 ml Output Total 200 ml Balance 520 ml 110.0 ml Intake Oral 720 ml IV Total 110.0 ml Output Urine Total 200 ml # Voids 7 3 # Bowel Movements 4 2 Laboratory Tests 12/04/17 06:48: White Blood Count 16.8#H, Red Blood Count 2.50L, Hemoglobin 6.7*L, Hematocrit 20.9L, Mean Corpuscular Volume 83, Mean Corpuscular Hemoglobin 26.6L, Mean Corpuscular Hemoglobin Concent 31.9L, Red Cell Distribution Width 15.6H, Platelet Count 188, Mean Platelet Volume 8.6, Neutrophils (%) (Auto) , Lymphocytes (%) (Auto) , Monocytes (%) (Auto) , Eosinophils (%) (Auto) , Basophils (%) (Auto) , Differential Total Cells Counted 100, Neutrophils % ( Manual) 71, Lymphocytes % (Manual) 18L, Monocytes % (Manual) 10, Eosinophils % ( Manual) 1, Basophils % (Manual) 0, Band Neutrophils 0, Platelet Estimate Adequate, Platelet Morphology Normal, Hypochromasia 4+, Anisocytosis 1+ Height (Feet): 6 Height (Inches): 6.00 Weight (Pounds): 149 Objective WDWN AA man NCAT supple CTA RRR soft ND NT no edema SUSSY BAUTISTA Dec 04, 2017 18:14
[2017-12-04] MEDS ORDERED: Sorbitol Solution UD 30ml ORAL ONE (18:30)
[2017-12-04 20:00] VITALS: BP 118/60
[2017-12-05 00:16] VITALS: BP 121/60
[2017-12-05 04:17] VITALS: BP 111/57
[2017-12-05] MEDS: metroNIDAZOLE 500mg tab ORAL SCH (05:19)
[2017-12-05] MEDS: Piperacillin/Tazobactam 3.375 GM in NS 110 ML IVPB SCH ×3 (05:19→22:24)
--- NOTE | 2017-12-05 06:15 | Progress Note ---
DATE: 12/04/2017 INTERNAL MEDICINE PROGRESS NOTE SUBJECTIVE: The patient is without any new complaints. No signs of active bleeding. OBJECTIVE: VITAL SIGNS: Blood pressure 123/58, heart rate 91, and respiratory rate 20. He is afebrile. NECK: Supple. LUNGS: Clear. CARDIAC: Regular. Normal S1 and S2. ABDOMEN: Soft. EXTREMITIES: No edema. LABORATORY DATA: Hemoglobin is down to 6.7. IMPRESSION: 1. Probable pancreatic malignancy. 2. Dilated biliary duct, status post stent. 3. Persisting and worsening anemia. 4. Metastatic prostate cancer. PLAN: 1. Transfuse packed red blood cells. 2. Stool occult blood pending. 3. Await tumor marker results. 4. Outpatient Surgical Oncology opinion. Perry Desai M.D. DR: PAOLA JOB#: [id number] CC:
[2017-12-05 08:00] VITALS: BP 98/54
[2017-12-05 08:42] LABS: HEMATOCRIT 21.5 % (42.0-52.0); HEMOGLOBIN 7.3 G/DL (14.2-18.0); MEAN CORPUSCULAR VOLUME 83 FL (80-99); PLATELET COUNT 190 K/UL (150-450); RED BLOOD COUNT 2.58 M/UL (4.70-6.10); RED CELL DISTRIBUTION WIDTH 15.8 % (11.6-14.8); WHITE BLOOD COUNT 21.7 K/UL (4.8-10.8)
[2017-12-05 09:14] LABS: ALANINE AMINOTRANSFERASE 109 U/L (12-78); ALBUMIN 1.4 G/DL (3.4-5.0); ALBUMIN/GLOBULIN RATIO 0.3 (1.0-2.7); ALKALINE PHOSPHATASE 172 U/L (46-116); ANION GAP 4 mmol/L (5-15); ASPARTATE AMINO TRANSFERASE 109 U/L (15-37); BILIRUBIN,TOTAL 15.6 MG/DL (0.2-1.0); BLOOD UREA NITROGEN 29 mg/dL (7-18); CALCIUM 9.5 MG/DL (8.5-10.1); CARBON DIOXIDE 28 MMOL/L (21-32); CHLORIDE 111 MMOL/L (98-107); POTASSIUM 3.5 MMOL/L (3.5-5.1); SODIUM 143 MMOL/L (136-145)
[2017-12-05 09:15] LABS: BILIRUBIN,DIRECT 13.2 MG/DL (0.0-0.3)
[2017-12-05 12:00] VITALS: BP 102/60
[2017-12-05 16:00] VITALS: BP 117/68
[2017-12-05] MEDS ORDERED: NS 500ML ONE (16:12)
[2017-12-05] MEDS ORDERED: 1/2 NS 1000ml IV ONE (16:12)
[2017-12-05 20:00] VITALS: BP 124/65
--- NOTE | 2017-12-05 21:05 | General Progress Note ---
Assessment/Plan Assessment/Plan Assessment - Biliary dilation - Head of pancreas mass --> suspicious for CA - tumor markers pending - anemia - stool OB still pending - Leukocytosis - advanced prostate CA Recommendations - Follow bili - should drop slowly - watch WBC - RBC transfusion - check stool OB - 10 days of empiric abx - change to zosyn - surgical and oncology opinion - push po - f/u CEA and CA 19-9 Subjective Allergies: Coded Allergies: No Known Allergies (Unverified , 11/26/17) Subjective above noted Feels OK some loose BM multiple labs still pending (tumor markers, stool OB) LFT still high Objective Last 24 Hour Vital Signs Date Time Temp Pulse Resp B/P (MAP) Pulse Ox O2 Delivery O2 Flow Rate FiO2 12/05/17 20:00 97.7 88 18 124/65 92 12/05/17 16:00 97.7 95 19 117/68 99 12/05/17 12:00 97.9 100 19 102/60 100 12/05/17 08:00 97.9 89 19 98/54 100 12/05/17 04:17 97.9 90 20 111/57 100 Room Air 12/05/17 00:16 97.9 91 20 121/60 100 Room Air Intake and Output 12/04/17 12/05/17 19:00 07:00 Intake Total 240 ml Balance 240 ml Intake Oral 240 ml # Voids 2 2 # Bowel Movements 4 4 Laboratory Tests 12/05/17 06:38: White Blood Count 21.7H, Red Blood Count 2.58L, Hemoglobin 7.3L, Hematocrit 21.5L, Mean Corpuscular Volume 83, Mean Corpuscular Hemoglobin 28.2, Mean Corpuscular Hemoglobin Concent 33.9, Red Cell Distribution Width 15.8H, Platelet Count 190, Mean Platelet Volume 8.5, Neutrophils (%) (Auto) , Lymphocytes (%) (Auto) , Monocytes (%) (Auto) , Eosinophils (%) (Auto) , Basophils (%) (Auto) , Differential Total Cells Counted 100, Neutrophils % ( Manual) 70, Lymphocytes % (Manual) 17L, Monocytes % (Manual) 11H, Eosinophils % (Manual) 1, Basophils % (Manual) 1, Band Neutrophils 0, Nucleated Red Blood Cells 1, Platelet Estimate Adequate, Platelet Morphology Normal, Polychromasia 1 +, Hypochromasia 3+, Anisocytosis 1+, Spherocytes 2+, Sodium Level 143, Potassium Level 3.5, Chloride Level 111H, Carbon Dioxide Level 28, Anion Gap 4L , Blood Urea Nitrogen 29H, Creatinine 1.0, Estimat Glomerular Filtration Rate , Glucose Level 93, Calcium Level 9.5, Total Bilirubin 15.6H, Direct Bilirubin 13.2H, Aspartate Amino Transf (AST/SGOT) 109H, Alanine Aminotransferase (ALT/ SGPT) 109H, Alkaline Phosphatase 172H, Total Protein 5.4L, Albumin 1.4L, Globulin 4.0, Albumin/Globulin Ratio 0.3L 12/05/17 11:23: Stool Occult Blood [Pending] Height (Feet): 6 Height (Inches): 6.00 Weight (Pounds): 149 Objective WDWN AA man NCAT supple CTA RRR soft ND NT no edema SUSSY BAUTISTA Dec 05, 2017 21:05
--- NOTE | 2017-12-05 23:47 | General Progress Note ---
Assessment/Plan Status: stable Assessment/Plan mdd lexapro 10mg Subjective Date patient seen: Dec 05, 2017 Neurologic/Psychiatric: Reports: anxiety, depressed, emotional problems Allergies: Coded Allergies: No Known Allergies (Unverified , 11/26/17) Objective Last 24 Hour Vital Signs Date Time Temp Pulse Resp B/P (MAP) Pulse Ox O2 Delivery O2 Flow Rate FiO2 12/05/17 20:00 97.7 88 18 124/65 92 12/05/17 16:00 97.7 95 19 117/68 99 12/05/17 12:00 97.9 100 19 102/60 100 12/05/17 08:00 97.9 89 19 98/54 100 12/05/17 04:17 97.9 90 20 111/57 100 Room Air 12/05/17 00:16 97.9 91 20 121/60 100 Room Air Intake and Output 12/04/17 12/05/17 19:00 07:00 Intake Total 240 ml Balance 240 ml Intake Oral 240 ml # Voids 2 2 # Bowel Movements 4 4 Laboratory Tests 12/05/17 06:38: White Blood Count 21.7H, Red Blood Count 2.58L, Hemoglobin 7.3L, Hematocrit 21.5L, Mean Corpuscular Volume 83, Mean Corpuscular Hemoglobin 28.2, Mean Corpuscular Hemoglobin Concent 33.9, Red Cell Distribution Width 15.8H, Platelet Count 190, Mean Platelet Volume 8.5, Neutrophils (%) (Auto) , Lymphocytes (%) (Auto) , Monocytes (%) (Auto) , Eosinophils (%) (Auto) , Basophils (%) (Auto) , Differential Total Cells Counted 100, Neutrophils % ( Manual) 70, Lymphocytes % (Manual) 17L, Monocytes % (Manual) 11H, Eosinophils % (Manual) 1, Basophils % (Manual) 1, Band Neutrophils 0, Nucleated Red Blood Cells 1, Platelet Estimate Adequate, Platelet Morphology Normal, Polychromasia 1 +, Hypochromasia 3+, Anisocytosis 1+, Spherocytes 2+, Sodium Level 143, Potassium Level 3.5, Chloride Level 111H, Carbon Dioxide Level 28, Anion Gap 4L , Blood Urea Nitrogen 29H, Creatinine 1.0, Estimat Glomerular Filtration Rate , Glucose Level 93, Calcium Level 9.5, Total Bilirubin 15.6H, Direct Bilirubin 13.2H, Aspartate Amino Transf (AST/SGOT) 109H, Alanine Aminotransferase (ALT/ SGPT) 109H, Alkaline Phosphatase 172H, Total Protein 5.4L, Albumin 1.4L, Globulin 4.0, Albumin/Globulin Ratio 0.3L 12/05/17 11:23: Stool Occult Blood [Pending] Height (Feet): 6 Height (Inches): 6.00 Weight (Pounds): 149 General Appearance: no apparent distress, alert Neurologic: alert, oriented x 3, responsive, depressed affect Kyler Schumacher M.D. Dec 05, 2017 23:47
--- NOTE | 2017-12-05 23:48 | Geriatric Progress Note ---
Assessment/Plan Assessment/Plan The patient is alert and oriented times self, place, time, and situation he is in. Mood is dysphoric. Affect is constricted. Congruent with mood. Thought process is concrete. Thought content, no suicidal or homicidal ideations. ASSESSMENT: 1. Depression. 2. Anxiety. PLAN: We will continue current medications. Subjective Interval Events 12/04/17 Mood/Memory: Reports: anxiety, depressed feelings, emotional problems Geriatric Geriatric Last 24 Hour Vital Signs Date Time Temp Pulse Resp B/P (MAP) Pulse Ox O2 Delivery O2 Flow Rate FiO2 12/05/17 20:00 97.7 88 18 124/65 92 12/05/17 16:00 97.7 95 19 117/68 99 12/05/17 12:00 97.9 100 19 102/60 100 12/05/17 08:00 97.9 89 19 98/54 100 12/05/17 04:17 97.9 90 20 111/57 100 Room Air 12/05/17 00:16 97.9 91 20 121/60 100 Room Air Intake and Output 12/04/17 12/05/17 19:00 07:00 Intake Total 240 ml Balance 240 ml Intake Oral 240 ml # Voids 2 2 # Bowel Movements 4 4 Laboratory Tests Test 12/05/17 06:38 12/05/17 11:23 White Blood Count 21.7 K/UL (4.8-10.8) H Red Blood Count 2.58 M/UL (4.70-6.10) L Hemoglobin 7.3 G/DL (14.2-18.0) L Hematocrit 21.5 % (42.0-52.0) L Mean Corpuscular Volume 83 FL (80-99) Mean Corpuscular Hemoglobin 28.2 PG (27.0-31.0) Mean Corpuscular Hemoglobin Concent 33.9 G/DL (32.0-36.0) Red Cell Distribution Width 15.8 % (11.6-14.8) H Platelet Count 190 K/UL (150-450) Mean Platelet Volume 8.5 FL (6.5-10.1) Neutrophils (%) (Auto) % (45.0-75.0) Lymphocytes (%) (Auto) % (20.0-45.0) Monocytes (%) (Auto) % (1.0-10.0) Eosinophils (%) (Auto) % (0.0-3.0) Basophils (%) (Auto) % (0.0-2.0) Differential Total Cells Counted 100 Neutrophils % (Manual) 70 % (45-75) Lymphocytes % (Manual) 17 % (20-45) L Monocytes % (Manual) 11 % (1-10) H Eosinophils % (Manual) 1 % (0-3) Basophils % (Manual) 1 % (0-2) Band Neutrophils 0 % (0-8) Nucleated Red Blood Cells 1 /100 WBC Platelet Estimate Adequate Platelet Morphology Normal Polychromasia 1+ Hypochromasia 3+ Anisocytosis 1+ Spherocytes 2+ Sodium Level 143 MMOL/L (136-145) Potassium Level 3.5 MMOL/L (3.5-5.1) Chloride Level 111 MMOL/L (98-107) H Carbon Dioxide Level 28 MMOL/L (21-32) Anion Gap 4 mmol/L (5-15) L Blood Urea Nitrogen 29 mg/dL (7-18) H Creatinine 1.0 MG/DL (0.55-1.30) Estimat Glomerular Filtration Rate mL/min (>60) Glucose Level 93 MG/DL (74-106) Calcium Level 9.5 MG/DL (8.5-10.1) Total Bilirubin 15.6 MG/DL (0.2-1.0) H Direct Bilirubin 13.2 MG/DL (0.0-0.3) H Aspartate Amino Transf (AST/SGOT) 109 U/L (15-37) H Alanine Aminotransferase (ALT/SGPT) 109 U/L (12-78) H Alkaline Phosphatase 172 U/L (46-116) H Total Protein 5.4 G/DL (6.4-8.2) L Albumin 1.4 G/DL (3.4-5.0) L Globulin 4.0 g/dL Albumin/Globulin Ratio 0.3 (1.0-2.7) L Stool Occult Blood Pending Current Medications Medications (Trade) Dose Ordered Sig/Delvin Route PRN Reason Start Time Stop Time Status Last Admin Dose Admin Acetaminophen (Tylenol) 650 mg Q4H PRN ORAL Mild Pain/Temp > 100.5 11/27/17 17:15 12/27/17 17:14 12/02/17 08:45 Escitalopram Oxalate (Lexapro) 10 mg DAILY ORAL 11/28/17 09:00 12/28/17 08:59 12/05/17 09:54 Piperacillin Sod/ Tazobactam Sod 3.375 gm/Sodium Chloride 110 ml @ 27.5 mls/hr EVERY 8 HOURS IVPB 12/03/17 22:00 12/10/17 21:59 12/05/17 22:24 Height (Feet): 6 Height (Inches): 6.00 Weight (Pounds): 149 General Appearance: well appearing, well dressed, well groomed, no apparent distress, alert Kyler Schumacher M.D. Dec 05, 2017 23:48
[2017-12-06] VITALS (7 sets, daily range): BP systolic 108–123; BP diastolic 60–72
--- NOTE | 2017-12-06 02:30 | Progress Note ---
DATE: 12/05/2017 SUBJECTIVE: The patient is without nausea, vomiting, or abdominal pain. He is status post packed red blood cell transfusion yesterday. His hemoglobin level has only improved from 6.7 to 7.3. OBJECTIVE: VITAL SIGNS: Blood pressure 124/65, pulse 88, respiratory rate 18, afebrile. LUNGS: Clear. CARDIAC: Regular. ABDOMEN: Soft, nontender. EXTREMITIES: No edema. LABORATORY DATA: Stool occult blood pending. IMPRESSION: 1. Suspected pancreatic malignant tumor. 2. Metastatic prostate cancer. 3. Persisting anemia, possible gastrointestinal blood loss. 4. Leukocytosis, improving. 5. Biliary dilatation, status post stent. PLAN: 1. Follow up hemoglobin. May need additional transfusions. 2. Await stool occult blood. 3. Gastrointestinal followup. 4. Continue empiric antibiotics. 5. Monitor liver function panels. 6. Await tumor markers. 7. Oncologic surgical evaluation to follow. Perry Desai M.D. DR: Gerardo JOB#: [id number] CC:
[2017-12-06] MEDS: Piperacillin/Tazobactam 3.375 GM in NS 110 ML IVPB SCH ×3 (04:57→21:06)
[2017-12-06] MEDS ORDERED: Lomotil 2.5mg tab ORAL ONE (07:45)
[2017-12-06 08:31] LABS: HEMATOCRIT 22.3 % (42.0-52.0); HEMOGLOBIN 7.2 G/DL (14.2-18.0); MEAN CORPUSCULAR VOLUME 86 FL (80-99); PLATELET COUNT 185 K/UL (150-450); RED CELL DISTRIBUTION WIDTH 16.4 % (11.6-14.8); WHITE BLOOD COUNT 13.5 K/UL (4.8-10.8)
[2017-12-06 09:17] LABS: ALANINE AMINOTRANSFERASE 102 U/L (12-78); ALBUMIN 1.4 G/DL (3.4-5.0); ALBUMIN/GLOBULIN RATIO 0.3 (1.0-2.7); ALKALINE PHOSPHATASE 183 U/L (46-116); ANION GAP 7 mmol/L (5-15); ASPARTATE AMINO TRANSFERASE 103 U/L (15-37); BILIRUBIN,TOTAL 14.9 MG/DL (0.2-1.0); BLOOD UREA NITROGEN 28 mg/dL (7-18); CALCIUM 9.3 MG/DL (8.5-10.1); CARBON DIOXIDE 26 MMOL/L (21-32); CHLORIDE 110 MMOL/L (98-107); CREATININE 1.1 MG/DL (0.55-1.30); POTASSIUM 3.3 MMOL/L (3.5-5.1); SODIUM 143 MMOL/L (136-145)
[2017-12-06 09:19] LABS: BILIRUBIN,DIRECT 12.8 MG/DL (0.0-0.3)
[2017-12-06] MEDS ORDERED: NS 275ml ONE (10:09)
[2017-12-06] MEDS ORDERED: Iothalamate Meglumine 60% 30ML INJ ONE (11:30)
--- NOTE | 2017-12-06 17:30 | Progress Note ---
DATE: 12/06/2017 SUBJECTIVE: The patient was in bed calm, alert, oriented, and was able to communicate well. Dr. Terrazas was also present in the room. He is the patient's GI doctor, apparently asked for placing a stent in the patient's bile duct. The patient has bled further and blot clot is causing more blockage of the bile duct. Therefore, the patient is still bleeding and is receiving blood transfusion everyday. The patient was explained by Dr. Terrazas and myself several times about the procedure that he is going to be received and stent believes to be removed and a new stent and bigger stent is going to be placed. The patient was focused on going to [facility]. He would like to be transferred from [place]. The patient remained illogical and would not comprehend the urgency of the situation he is in. In addition, he stated that he does not believe that he is going to have an adverse reaction from not receiving the procedure. The patient was unable to process the information that was given to him in regards to the urgency of the medical situation he is in. Dr. Terrazas spoke to the patient's daughters, Davidson, who also did not give a consent to the procedure. The rationale for refusing the procedure was that he would like to be transferred to [facility] and does not want to receive the procedure at [place] since he is not being treated with his own doctor. MENTAL STATUS EXAMINATION: The patient was alert, oriented times self, place, and time. Mood was neutral, then became anxious as the discussion progressed. Affect is full range, congruent with mood. Thought process is concrete. Thought content, no suicidal or homicidal ideations. No delusions. No auditory or visual hallucinations. Memory, concentration, and attention was intact. Insight and judgment is poor. ASSESSMENT: Depression. The patient lacks capacity to make decisions. If the medical condition is an absolute emergency, two MDs need to document the necessity of the procedure and proceed without the patient's consent or the patient's family's consent. Kyler Schumacher M.D. DR: DORYS JOB#: [id number] CC:
--- NOTE | 2017-12-06 23:22 | General Progress Note ---
Assessment/Plan Assessment/Plan Assessment - Head of pancreas mass --> Now pathology reading upgraded to adenoCA - anemia and ongoing bleeding - suspect sphincterotomy site bleeding - advanced prostate CA - Refusal of repeat ERCP Recommendations - Follow bili - resolving very slowly, ? occluded stent - watch WBC / empiric abx - RBC transfusion PRN (another unit today) - surgical and oncology opinion at [facility] for definitive Rx - await transfer to [facility] Subjective Allergies: Coded Allergies: No Known Allergies (Unverified , 11/26/17) Subjective above noted c/o loose stools RN reported to me this am that stools black yesterday s/p transfusion d/w patient and on the phone with daughter at length suspect sphincterotomy site bleeding d/w Dr. Nini hitchcock repeat ERCP patient and daughter declined ERCP patient just wants to go to [facility] for rest of his care patient and daughter both advised of risks of delay in ERCP, including more bleeding, [place], CVA, d/w Dr Lloyd hitchcock patient request for transfer to [facility] also, the path specimen was reportedly sent to [facility] for second opinion and was read as AdenoCA (final report still pending) Objective Last 24 Hour Vital Signs Date Time Temp Pulse Resp B/P (MAP) Pulse Ox O2 Delivery O2 Flow Rate FiO2 12/06/17 20:18 98.1 86 20 123/67 98 Room Air 12/06/17 15:53 98.2 92 20 116/72 97 12/06/17 11:56 97.7 96 20 117/72 98 12/06/17 08:00 97.7 93 20 115/63 99 12/06/17 03:44 98 Room Air 12/06/17 03:44 98.1 84 18 114/63 98 Room Air 12/06/17 00:00 98.1 84 18 108/67 100 12/06/17 00:00 100 Room Air Intake and Output 12/05/17 12/06/17 19:00 07:00 Intake Total 480 ml 165.0 ml Balance 480 ml 165.0 ml Intake Oral 480 ml IV Total 165.0 ml # Voids 1 # Bowel Movements 2 Laboratory Tests 12/06/17 06:54: White Blood Count 13.5H, Red Blood Count 2.60L, Hemoglobin 7.2L, Hematocrit 22.3L, Mean Corpuscular Volume 86, Mean Corpuscular Hemoglobin 27.6, Mean Corpuscular Hemoglobin Concent 32.2, Red Cell Distribution Width 16.4H, Platelet Count 185, Mean Platelet Volume 9.0, Neutrophils (%) (Auto) , Lymphocytes (%) (Auto) , Monocytes (%) (Auto) , Eosinophils (%) (Auto) , Basophils (%) (Auto) , Differential Total Cells Counted 100, Neutrophils % ( Manual) 75, Lymphocytes % (Manual) 11L, Monocytes % (Manual) 13H, Eosinophils % (Manual) 0, Basophils % (Manual) 0, Band Neutrophils 1, Nucleated Red Blood Cells 1, Platelet Estimate Adequate, Platelet Morphology Normal, Polychromasia 2 +, Hypochromasia 2+, Anisocytosis 1+, Target Cells , Sodium Level 143, Potassium Level 3.3L, Chloride Level 110H, Carbon Dioxide Level 26, Anion Gap 7 , Blood Urea Nitrogen 28H, Creatinine 1.1, Estimat Glomerular Filtration Rate , Glucose Level 100, Calcium Level 9.3, Total Bilirubin 14.9H, Direct Bilirubin 12.8H, Aspartate Amino Transf (AST/SGOT) 103H, Alanine Aminotransferase (ALT/ SGPT) 102H, Alkaline Phosphatase 183H, Total Protein 5.4L, Albumin 1.4L, Globulin 4.0, Albumin/Globulin Ratio 0.3L Height (Feet): 6 Height (Inches): 6.00 Weight (Pounds): 149 Objective WDWN AA man NCAT supple CTA RRR soft ND NT no edema SUSSY BAUTISTA Dec 06, 2017 23:22
--- NOTE | 2017-12-07 01:45 | Progress Note ---
DATE: 12/06/2017 INTERNAL MEDICINE AND CARDIOLOGY PROGRESS NOTE SUBJECTIVE: The patient had melena yesterday. He continues to have dropping hemoglobin despite multiple transfusions. The patient has had multiple discussions with Dr. Jose and myself, and has refused ERCP. Efforts are now underway to transfer to a higher level of care at [facility] where surgical intervention and possible Whipple procedure as well as repeat ERCP will be considered. OBJECTIVE: VITAL SIGNS: Blood pressure 124/65, pulse 88, respiratory rate 18, and afebrile. LUNGS: Clear. CARDIAC: Regular. Normal S1 and S2. ABDOMEN: Soft with no focal tenderness and there is no edema. LABORATORY AND DIAGNOSTIC DATA: Hemoglobin 7.2. IMPRESSION: 1. Gastrointestinal bleeding, status post endoscopic retrograde cholangiopancreatography and biliary stent with biliary dilatation. 2. Pancreatic mass, suspicious for malignancy. 3. Metastatic prostate cancer. 4. Severe protein-calorie malnutrition. PLAN: 1. Await tumor markers. 2. Transfuse for hemoglobin less than 8 g. 3. No anti-platelet therapy. 4. Maintain adequate hydration. 5. Await transfer to [facility]. 6. Discussed with the patient's family member. ePrry Desai M.D. DR: CARISSA JOB#: [id number] CC:
[2017-12-07] MEDS: Piperacillin/Tazobactam 3.375 GM in NS 110 ML IVPB SCH ×3 (05:18→21:23)
[2017-12-07 11:53] VITALS: BP 107/63
--- NOTE | 2017-12-07 13:23 | General Progress Note ---
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 occluded stent - watch WBC / empiric abx - RBC transfusion PRN - surgical and oncology opinion at [facility] for definitive Rx - await transfer to [facility] Subjective Allergies: Coded Allergies: No Known Allergies (Unverified , 11/26/17) Subjective above noted no loose stools since given anti diarrheals yesterday refused blood draw today want to go to [facility] Objective Last 24 Hour Vital Signs Date Time Temp Pulse Resp B/P (MAP) Pulse Ox O2 Delivery O2 Flow Rate FiO2 12/07/17 11:53 97.2 85 18 107/63 100 Room Air 12/06/17 23:51 97.9 77 20 116/60 100 12/06/17 20:18 98.1 86 20 123/67 98 Room Air 12/06/17 15:53 98.2 92 20 116/72 97 Intake and Output 12/06/17 12/07/17 19:00 07:00 Intake Total 180 ml Balance 180 ml Intake Oral 180 ml # Voids 3 1 # Bowel Movements 2 Height (Feet): 6 Height (Inches): 6.00 Weight (Pounds): 149 Objective WDWN AA man NCAT supple CTA RRR soft ND NT no edema SUSSY BAUTISTA Dec 07, 2017 13:23
[2017-12-07 15:38] VITALS: BP 113/64
[2017-12-07 20:00] VITALS: BP 105/62
[2017-12-08] VITALS: BP 102/59
[2017-12-08 04:00] VITALS: BP 116/65
--- NOTE | 2017-12-08 04:01 | Progress Note ---
DATE: 12/07/2017 CARDIOLOGY PROGRESS NOTE SUBJECTIVE: No nausea, vomiting, or abdominal pain. Still with dark stools. He was transfused a unit of packed cells yesterday. OBJECTIVE: LUNGS: Good breath sounds. HEART: Regular rhythm and rate. Normal S1, S2. ABDOMEN: Soft. EXTREMITIES: No focal tenderness or edema. ASSESSMENT AND PLAN: 1. Awaiting transfer to [facility] for higher level of care with regard to pancreatic mass. , hemodynamically stable at this time. 2. We will recheck laboratory studies and transfuse as needed. Perry Desai M.D. DR: PAOLA JOB#: [id number] CC:
[2017-12-08] MEDS: Piperacillin/Tazobactam 3.375 GM in NS 110 ML IVPB SCH ×3 (05:38→21:33)
[2017-12-08 08:00] VITALS: BP 112/58
[2017-12-08] MEDS: Loperamide 2mg cap ORAL PRN (11:51)
[2017-12-08 12:00] VITALS: BP 106/60
[2017-12-08 12:08] LABS: HEMATOCRIT 23.5 % (42.0-52.0); HEMOGLOBIN 7.4 G/DL (14.2-18.0); MEAN CORPUSCULAR VOLUME 89 FL (80-99); PLATELET COUNT 207 K/UL (150-450); RED BLOOD COUNT 2.63 M/UL (4.70-6.10); WHITE BLOOD COUNT 10.9 K/UL (4.8-10.8)
[2017-12-08 12:38] LABS: ALANINE AMINOTRANSFERASE 105 U/L (12-78); ALBUMIN 1.4 G/DL (3.4-5.0); ALBUMIN/GLOBULIN RATIO 0.3 (1.0-2.7); ALKALINE PHOSPHATASE 225 U/L (46-116); ANION GAP 5 mmol/L (5-15); ASPARTATE AMINO TRANSFERASE 120 U/L (15-37); BILIRUBIN,TOTAL 16.1 MG/DL (0.2-1.0); BLOOD UREA NITROGEN 18 mg/dL (7-18); CALCIUM 9.1 MG/DL (8.5-10.1); CARBON DIOXIDE 27 MMOL/L (21-32); CHLORIDE 110 MMOL/L (98-107); POTASSIUM 3.2 MMOL/L (3.5-5.1); SODIUM 142 MMOL/L (136-145)
[2017-12-08 16:00] VITALS: BP 112/57
[2017-12-08 19:51] VITALS: BP 122/67
--- NOTE | 2017-12-08 20:30 | General Progress Note ---
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 - anemia and ongoing bleeding - suspect sphincterotomy site bleeding - likely now resolved - advanced prostate CA - suspect stent occlusion, given bilirubin level - Patient refuses repeat ERCP at [facility] Recommendations - Follow bili - needs ERCP with stent exchange - watch WBC / empiric abx - at risk for cholangitis - RBC transfusion PRN - surgical and oncology opinion at [facility] for definitive Rx - await transfer to [facility] - message left with daughter Subjective Allergies: Coded Allergies: No Known Allergies (Unverified , 11/26/17) Subjective above noted no loose stools initially refused blood tests, then agreed want to go to [facility] called transfer center - still no beds Objective Last 24 Hour Vital Signs Date Time Temp Pulse Resp B/P (MAP) Pulse Ox O2 Delivery O2 Flow Rate FiO2 12/08/17 19:51 98.1 82 20 122/67 100 Room Air 12/08/17 16:00 97.5 85 20 112/57 99 12/08/17 12:00 97.9 81 19 106/60 100 12/08/17 08:00 97.6 86 18 112/58 100 12/08/17 04:00 97.0 80 18 116/65 97 12/08/17 00:00 97.3 77 16 102/59 97 Intake and Output 12/07/17 12/08/17 19:00 07:00 Intake Total 600 ml 110.0 ml Output Total 200 ml Balance 400 ml 110.0 ml Intake Oral 600 ml IV Total 110.0 ml Output Urine Total 200 ml # Voids 1 2 # Bowel Movements 1 Laboratory Tests 12/08/17 11:00: White Blood Count 10.9H, Red Blood Count 2.63L, Hemoglobin 7.4L, Hematocrit 23.5L, Mean Corpuscular Volume 89, Mean Corpuscular Hemoglobin 28.0, Mean Corpuscular Hemoglobin Concent 31.5L, Red Cell Distribution Width 19.0H, Platelet Count 207, Mean Platelet Volume 8.8, Neutrophils (%) (Auto) , Lymphocytes (%) (Auto) , Monocytes (%) (Auto) , Eosinophils (%) (Auto) , Basophils (%) (Auto) , Differential Total Cells Counted 100, Neutrophils % ( Manual) 76H, Lymphocytes % (Manual) 8L, Monocytes % (Manual) 12H, Eosinophils % (Manual) 1, Basophils % (Manual) 1, Band Neutrophils 2, Platelet Estimate Adequate, Platelet Morphology Normal, Polychromasia 1+, Hypochromasia 2+, Anisocytosis 2+, Sodium Level 142, Potassium Level 3.2L, Chloride Level 110H, Carbon Dioxide Level 27, Anion Gap 5, Blood Urea Nitrogen 18, Creatinine 1.0, Estimat Glomerular Filtration Rate , Glucose Level 101, Calcium Level 9.1, Magnesium Level 1.7L, Total Bilirubin 16.1H, Direct Bilirubin 14.0H, Aspartate Amino Transf (AST/SGOT) 120H, Alanine Aminotransferase (ALT/SGPT) 105H, Alkaline Phosphatase 225H, Total Protein 5.6L, Albumin 1.4L, Globulin 4.2, Albumin/Globulin Ratio 0.3L Height (Feet): 6 Height (Inches): 6.00 Weight (Pounds): 149 Objective WDWN AA man NCAT supple CTA RRR soft ND NT no edema SUSSY BAUTISTA Dec 08, 2017 20:29
--- NOTE | 2017-12-08 21:00 | General Progress Note ---
Assessment/Plan Status: stable Assessment/Plan mdd lexapro 10mg Subjective Date patient seen: Dec 08, 2017 Neurologic/Psychiatric: Reports: anxiety, depressed, emotional problems Allergies: Coded Allergies: No Known Allergies (Unverified , 11/26/17) Objective Last 24 Hour Vital Signs Date Time Temp Pulse Resp B/P (MAP) Pulse Ox O2 Delivery O2 Flow Rate FiO2 12/08/17 19:51 98.1 82 20 122/67 100 Room Air 12/08/17 16:00 97.5 85 20 112/57 99 12/08/17 12:00 97.9 81 19 106/60 100 12/08/17 08:00 97.6 86 18 112/58 100 12/08/17 04:00 97.0 80 18 116/65 97 12/08/17 00:00 97.3 77 16 102/59 97 Intake and Output 12/07/17 12/08/17 19:00 07:00 Intake Total 600 ml 110.0 ml Output Total 200 ml Balance 400 ml 110.0 ml Intake Oral 600 ml IV Total 110.0 ml Output Urine Total 200 ml # Voids 1 2 # Bowel Movements 1 Laboratory Tests 12/08/17 11:00: White Blood Count 10.9H, Red Blood Count 2.63L, Hemoglobin 7.4L, Hematocrit 23.5L, Mean Corpuscular Volume 89, Mean Corpuscular Hemoglobin 28.0, Mean Corpuscular Hemoglobin Concent 31.5L, Red Cell Distribution Width 19.0H, Platelet Count 207, Mean Platelet Volume 8.8, Neutrophils (%) (Auto) , Lymphocytes (%) (Auto) , Monocytes (%) (Auto) , Eosinophils (%) (Auto) , Basophils (%) (Auto) , Differential Total Cells Counted 100, Neutrophils % ( Manual) 76H, Lymphocytes % (Manual) 8L, Monocytes % (Manual) 12H, Eosinophils % (Manual) 1, Basophils % (Manual) 1, Band Neutrophils 2, Platelet Estimate Adequate, Platelet Morphology Normal, Polychromasia 1+, Hypochromasia 2+, Anisocytosis 2+, Sodium Level 142, Potassium Level 3.2L, Chloride Level 110H, Carbon Dioxide Level 27, Anion Gap 5, Blood Urea Nitrogen 18, Creatinine 1.0, Estimat Glomerular Filtration Rate , Glucose Level 101, Calcium Level 9.1, Magnesium Level 1.7L, Total Bilirubin 16.1H, Direct Bilirubin 14.0H, Aspartate Amino Transf (AST/SGOT) 120H, Alanine Aminotransferase (ALT/SGPT) 105H, Alkaline Phosphatase 225H, Total Protein 5.6L, Albumin 1.4L, Globulin 4.2, Albumin/Globulin Ratio 0.3L Height (Feet): 6 Height (Inches): 6.00 Weight (Pounds): 149 General Appearance: no apparent distress, alert Neurologic: alert, oriented x 3, responsive, depressed affect Kyler Schumacher M.D. Dec 08, 2017 21:00
--- NOTE | 2017-12-08 21:01 | Geriatric Progress Note ---
Assessment/Plan Assessment/Plan The patient is alert and oriented times self, place, time, and situation he is in. Mood is dysphoric. Affect is constricted. Congruent with mood. Thought process is concrete. Thought content, no suicidal or homicidal ideations. ASSESSMENT: 1. Depression. 2. Anxiety. PLAN: We will continue current medications. Subjective Interval Events 12/07/17 Mood/Memory: Reports: prior hx, anxiety, depressed feelings, emotional problems Geriatric Geriatric Last 24 Hour Vital Signs Date Time Temp Pulse Resp B/P (MAP) Pulse Ox O2 Delivery O2 Flow Rate FiO2 12/08/17 19:51 98.1 82 20 122/67 100 Room Air 12/08/17 16:00 97.5 85 20 112/57 99 12/08/17 12:00 97.9 81 19 106/60 100 12/08/17 08:00 97.6 86 18 112/58 100 12/08/17 04:00 97.0 80 18 116/65 97 12/08/17 00:00 97.3 77 16 102/59 97 Intake and Output 12/07/17 12/08/17 19:00 07:00 Intake Total 600 ml 110.0 ml Output Total 200 ml Balance 400 ml 110.0 ml Intake Oral 600 ml IV Total 110.0 ml Output Urine Total 200 ml # Voids 1 2 # Bowel Movements 1 Laboratory Tests Test 12/08/17 11:00 White Blood Count 10.9 K/UL (4.8-10.8) H Red Blood Count 2.63 M/UL (4.70-6.10) L Hemoglobin 7.4 G/DL (14.2-18.0) L Hematocrit 23.5 % (42.0-52.0) L Mean Corpuscular Volume 89 FL (80-99) Mean Corpuscular Hemoglobin 28.0 PG (27.0-31.0) Mean Corpuscular Hemoglobin Concent 31.5 G/DL (32.0-36.0) L Red Cell Distribution Width 19.0 % (11.6-14.8) H Platelet Count 207 K/UL (150-450) Mean Platelet Volume 8.8 FL (6.5-10.1) Neutrophils (%) (Auto) % (45.0-75.0) Lymphocytes (%) (Auto) % (20.0-45.0) Monocytes (%) (Auto) % (1.0-10.0) Eosinophils (%) (Auto) % (0.0-3.0) Basophils (%) (Auto) % (0.0-2.0) Differential Total Cells Counted 100 Neutrophils % (Manual) 76 % (45-75) H Lymphocytes % (Manual) 8 % (20-45) L Monocytes % (Manual) 12 % (1-10) H Eosinophils % (Manual) 1 % (0-3) Basophils % (Manual) 1 % (0-2) Band Neutrophils 2 % (0-8) Platelet Estimate Adequate Platelet Morphology Normal Polychromasia 1+ Hypochromasia 2+ Anisocytosis 2+ Sodium Level 142 MMOL/L (136-145) Potassium Level 3.2 MMOL/L (3.5-5.1) L Chloride Level 110 MMOL/L (98-107) H Carbon Dioxide Level 27 MMOL/L (21-32) Anion Gap 5 mmol/L (5-15) Blood Urea Nitrogen 18 mg/dL (7-18) Creatinine 1.0 MG/DL (0.55-1.30) Estimat Glomerular Filtration Rate mL/min (>60) Glucose Level 101 MG/DL (74-106) Calcium Level 9.1 MG/DL (8.5-10.1) Magnesium Level 1.7 MG/DL (1.8-2.4) L Total Bilirubin 16.1 MG/DL (0.2-1.0) H Direct Bilirubin 14.0 MG/DL (0.0-0.3) H Aspartate Amino Transf (AST/SGOT) 120 U/L (15-37) H Alanine Aminotransferase (ALT/SGPT) 105 U/L (12-78) H Alkaline Phosphatase 225 U/L (46-116) H Total Protein 5.6 G/DL (6.4-8.2) L Albumin 1.4 G/DL (3.4-5.0) L Globulin 4.2 g/dL Albumin/Globulin Ratio 0.3 (1.0-2.7) L Current Medications Medications (Trade) Dose Ordered Sig/Delvin Route PRN Reason Start Time Stop Time Status Last Admin Dose Admin Acetaminophen (Tylenol) 650 mg Q4H PRN ORAL Mild Pain/Temp > 100.5 11/27/17 17:15 12/27/17 17:14 12/02/17 08:45 Escitalopram Oxalate (Lexapro) 10 mg DAILY ORAL 11/28/17 09:00 12/28/17 08:59 12/08/17 08:24 Loperamide HCl (Imodium) 2 mg Q4H PRN ORAL Diarrhea 12/06/17 08:15 01/05/18 08:14 12/08/17 11:51 Piperacillin Sod/ Tazobactam Sod 3.375 gm/Sodium Chloride 110 ml @ 27.5 mls/hr EVERY 8 HOURS IVPB 12/03/17 22:00 12/13/17 21:59 12/08/17 13:53 Height (Feet): 6 Height (Inches): 6.00 Weight (Pounds): 149 General Appearance: alert, good eye contact, mild distress Neurologic: alert, oriented x3, responsive Kyler Schumacher M.D. Dec 08, 2017 21:01
[2017-12-09] VITALS: BP 112/62
[2017-12-09 03:37] VITALS: BP 123/67
--- NOTE | 2017-12-09 04:45 | Progress Note ---
DATE: 12/08/2017 CARDIOLOGY PROGRESS NOTE SUBJECTIVE: The patient's hemoglobin is 7.4. Packed red blood cell transfusion was ordered. The patient has no chest pain or shortness of breath. No nausea or vomiting. No abdominal pain. He is tolerating oral intake. Final pathology has confirmed adenocarcinoma of the pancreas from the biopsy. The patient is still waiting for a bed at [facility] for higher level of care and possible surgical intervention. A message was left with family members today regarding the current state of his condition. OBJECTIVE: VITAL SIGNS: Blood pressure 122/67, pulse 82, and respirations 20. NECK: Supple. LUNGS: Clear. CARDIAC: Regular. ABDOMEN: Soft and nontender. EXTREMITIES: No edema. PLAN: 1. Transfusion today. 2. Monitor hemoglobin. 3. Continue to follow liver function studies. 4. Maintain antibiotics. 5. Nutritional support. 6. Await transfer to higher level of care. 7. Physical and occupational therapy for strengthening exercises. Perry Desai M.D. DR: PAOLA JOB#: [id number] CC:
[2017-12-09] MEDS: Piperacillin/Tazobactam 3.375 GM in NS 110 ML IVPB SCH (05:40)
[2017-12-09 07:20] LABS: ALANINE AMINOTRANSFERASE 110 U/L (12-78); ALBUMIN 1.4 G/DL (3.4-5.0); ALBUMIN/GLOBULIN RATIO 0.3 (1.0-2.7); ALKALINE PHOSPHATASE 249 U/L (46-116); ANION GAP 4 mmol/L (5-15); ASPARTATE AMINO TRANSFERASE 122 U/L (15-37); BASOPHILS % (AUTO) 0.4 % (0.0-2.0); BLOOD UREA NITROGEN 14 mg/dL (7-18); CALCIUM 9.1 MG/DL (8.5-10.1); CARBON DIOXIDE 27 MMOL/L (21-32); CHLORIDE 109 MMOL/L (98-107); CREATININE 0.9 MG/DL (0.55-1.30); EOSINOPHILS % (AUTO) 2.6 % (0.0-3.0); HEMATOCRIT 26.6 % (42.0-52.0); HEMOGLOBIN 8.8 G/DL (14.2-18.0); LYMPHOCYTES % (AUTO) 10.4 % (20.0-45.0); MEAN CORPUSCULAR VOLUME 90 FL (80-99); MONOCYTES % (AUTO) 6.9 % (1.0-10.0); NEUTROPHILS % (AUTO) 79.6 % (45.0-75.0); PLATELET COUNT 212 K/UL (150-450); POTASSIUM 3.6 MMOL/L (3.5-5.1); RED BLOOD COUNT 2.95 M/UL (4.70-6.10); RED CELL DISTRIBUTION WIDTH 18.7 % (11.6-14.8); SODIUM 140 MMOL/L (136-145); WHITE BLOOD COUNT 9.1 K/UL (4.8-10.8)
[2017-12-09 07:26] LABS: BILIRUBIN,DIRECT 14.4 MG/DL (0.0-0.3)
[2017-12-09 08:00] VITALS: BP 119/64
--- NOTE | 2017-12-09 09:45 | General Progress Note ---
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 - anemia and ongoing bleeding - now stablized - advanced prostate CA - persistent janundice - suspect stent occlusion or migration - Patient refuses repeat ERCP at [facility] [place] [facility] Recommendations - Follow bili - needs ERCP with stent exchange - continue abx until 12/17 - RBC transfusion PRN - surgical and oncology opinion at [facility] for definitive Rx - await transfer to [facility] - message left with daughter Subjective Allergies: Coded Allergies: No Known Allergies (Unverified , 11/26/17) Subjective above noted small BM tolerating PO Objective Last 24 Hour Vital Signs Date Time Temp Pulse Resp B/P (MAP) Pulse Ox O2 Delivery O2 Flow Rate FiO2 12/09/17 08:00 97.3 85 18 119/64 99 12/09/17 03:37 97.7 69 20 123/67 99 Room Air 12/09/17 00:00 97.5 80 20 112/62 100 Room Air 12/08/17 19:51 98.1 82 20 122/67 100 Room Air 12/08/17 16:00 97.5 85 20 112/57 99 12/08/17 12:00 97.9 81 19 106/60 100 Intake and Output 12/08/17 12/09/17 19:00 07:00 Intake Total 480 ml Balance 480 ml Intake Oral 480 ml # Voids 1 5 # Bowel Movements 3 Laboratory Tests 12/08/17 11:00: White Blood Count 10.9H, Red Blood Count 2.63L, Hemoglobin 7.4L, Hematocrit 23.5L, Mean Corpuscular Volume 89, Mean Corpuscular Hemoglobin 28.0, Mean Corpuscular Hemoglobin Concent 31.5L, Red Cell Distribution Width 19.0H, Platelet Count 207, Mean Platelet Volume 8.8, Neutrophils (%) (Auto) , Lymphocytes (%) (Auto) , Monocytes (%) (Auto) , Eosinophils (%) (Auto) , Basophils (%) (Auto) , Differential Total Cells Counted 100, Neutrophils % ( Manual) 76H, Lymphocytes % (Manual) 8L, Monocytes % (Manual) 12H, Eosinophils % (Manual) 1, Basophils % (Manual) 1, Band Neutrophils 2, Platelet Estimate Adequate, Platelet Morphology Normal, Polychromasia 1+, Hypochromasia 2+, Anisocytosis 2+, Sodium Level 142, Potassium Level 3.2L, Chloride Level 110H, Carbon Dioxide Level 27, Anion Gap 5, Blood Urea Nitrogen 18, Creatinine 1.0, Estimat Glomerular Filtration Rate , Glucose Level 101, Calcium Level 9.1, Magnesium Level 1.7L, Total Bilirubin 16.1H, Direct Bilirubin 14.0H, Aspartate Amino Transf (AST/SGOT) 120H, Alanine Aminotransferase (ALT/SGPT) 105H, Alkaline Phosphatase 225H, Total Protein 5.6L, Albumin 1.4L, Globulin 4.2, Albumin/Globulin Ratio 0.3L 12/09/17 05:55: White Blood Count 9.1, Red Blood Count 2.95L, Hemoglobin 8.8L, Hematocrit 26.6L , Mean Corpuscular Volume 90, Mean Corpuscular Hemoglobin 29.7, Mean Corpuscular Hemoglobin Concent 33.0, Red Cell Distribution Width 18.7H, Platelet Count 212, Mean Platelet Volume 8.7, Neutrophils (%) (Auto) 79.6H, Lymphocytes (%) (Auto) 10.4L, Monocytes (%) (Auto) 6.9, Eosinophils (%) (Auto) 2.6, Basophils (%) (Auto) 0.4, Sodium Level 140, Potassium Level 3.6, Chloride Level 109H, Carbon Dioxide Level 27, Anion Gap 4L, Blood Urea Nitrogen 14, Creatinine 0.9, Estimat Glomerular Filtration Rate , Glucose Level 87, Calcium Level 9.1, Total Bilirubin 17.0H, Direct Bilirubin 14.4H, Aspartate Amino Transf (AST/SGOT) 122H, Alanine Aminotransferase (ALT/SGPT) 110H, Alkaline Phosphatase 249H, Total Protein 5.8L, Albumin 1.4L, Globulin 4.4, Albumin/ Globulin Ratio 0.3L Height (Feet): 6 Height (Inches): 6.00 Weight (Pounds): 149 Objective WDWN AA man NCAT (+) Icteric supple CTA RRR soft ND NT no edema SUSSY BAUTISTA Dec 09, 2017 09:45
[2017-12-09 12:00] VITALS: BP 130/79
[2017-12-09] MEDS ORDERED: Levofloxacin 500mg tab ORAL SCH (12:00)
[2017-12-09] MEDS: Loperamide 2mg cap ORAL PRN (12:27)
[2017-12-09] MEDS ORDERED: LEVAQUIN500 MG ORAL (13:27)
[2017-12-09] MEDS ORDERED: LEXAPRO10 MG ORAL (13:28)
[2017-12-09] MEDS ORDERED: IMODIUM A-D2 M2 PO ×2 (13:29→13:30)
[2017-12-09] MEDS ORDERED: TYLENOL650 MG/20. ORAL (13:31)
[2017-12-09] MEDS ORDERED: NS 275ml ONE (14:49)
--- NOTE | 2017-12-09 18:48 | General Progress Note ---
Assessment/Plan Assessment/Plan ASSESSMENT: 1. Depression. 2. Anxiety. PLAN: We will continue current medications. lexapro 10mg Subjective Date patient seen: Dec 09, 2017 Neurologic/Psychiatric: Reports: anxiety, emotional problems Allergies: Coded Allergies: No Known Allergies (Unverified , 11/26/17) Objective Last 24 Hour Vital Signs Date Time Temp Pulse Resp B/P (MAP) Pulse Ox O2 Delivery O2 Flow Rate FiO2 12/09/17 12:00 Room Air 12/09/17 12:00 98.1 81 20 130/79 99 12/09/17 08:00 97.3 85 18 119/64 99 12/09/17 08:00 Room Air 12/09/17 03:37 97.7 69 20 123/67 99 Room Air 12/09/17 00:00 97.5 80 20 112/62 100 Room Air 12/08/17 19:51 98.1 82 20 122/67 100 Room Air Intake and Output 12/08/17 12/09/17 19:00 07:00 Intake Total 480 ml Balance 480 ml Intake Oral 480 ml # Voids 1 5 # Bowel Movements 3 Laboratory Tests 12/09/17 05:55: White Blood Count 9.1, Red Blood Count 2.95L, Hemoglobin 8.8L, Hematocrit 26.6L , Mean Corpuscular Volume 90, Mean Corpuscular Hemoglobin 29.7, Mean Corpuscular Hemoglobin Concent 33.0, Red Cell Distribution Width 18.7H, Platelet Count 212, Mean Platelet Volume 8.7, Neutrophils (%) (Auto) 79.6H, Lymphocytes (%) (Auto) 10.4L, Monocytes (%) (Auto) 6.9, Eosinophils (%) (Auto) 2.6, Basophils (%) (Auto) 0.4, Sodium Level 140, Potassium Level 3.6, Chloride Level 109H, Carbon Dioxide Level 27, Anion Gap 4L, Blood Urea Nitrogen 14, Creatinine 0.9, Estimat Glomerular Filtration Rate , Glucose Level 87, Calcium Level 9.1, Total Bilirubin 17.0H, Direct Bilirubin 14.4H, Aspartate Amino Transf (AST/SGOT) 122H, Alanine Aminotransferase (ALT/SGPT) 110H, Alkaline Phosphatase 249H, Total Protein 5.8L, Albumin 1.4L, Globulin 4.4, Albumin/ Globulin Ratio 0.3L Height (Feet): 6 Height (Inches): 6.00 Weight (Pounds): 149 General Appearance: no apparent distress, alert Neurologic: alert, oriented x 3, responsive, depressed affect Kyler Schumacher M.D. Dec 09, 2017 18:48
--- NOTE | 2017-12-09 20:02 | Progress Note ---
DATE: 12/08/2017 CARDIOLOGY AND INTERNAL MEDICINE PROGRESS NOTE Late entry for 12/08/2017. SUBJECTIVE: The patient has no new distress. There is no signs of active bleeding. He is receiving p.r.n. packed red blood cell transfusion. OBJECTIVE: VITAL SIGNS: Blood pressure 119/64, pulse 85, and respirations 18. LUNGS: Clear. CARDIAC: Regular. ABDOMEN: Soft and nontender. EXTREMITIES: Good perfusion and no edema. IMPRESSION: 1. Pancreatic cancer. 2. History of advanced prostate cancer, apparently in remission. 3. Resolving gastrointestinal bleeding following biliary stent with anemia requiring transfusions. PLAN: Still no bed at [facility] available. Will need transfer there ultimately for surgical evaluation for possible Whipple if he is a candidate. For now, we will continue monitoring blood count and transfuse as needed in addition to strengthening with physical therapy. If no bed is available by the end of the week, we may transfer to a fpc facility and arrange this admission to [facility] next week directly, which may be a faster route. Perry Desai M.D. DR: PAOLA JOB#: [id number] CC:
--- NOTE | 2017-12-10 14:29 | Discharge Summary ---
Discharge Summary Hospital Course Date of Admission Nov 26, 2017 at 09:38 Date of Discharge Dec 09, 2017 at 14:50 Admitting Diagnosis weakness,dehydration HPI Cleveland Chen is a 77 year old male who was admitted on Nov 26, 2017 at 09: 38 for Weakness Hospital Course [id number] Discharge Discharge Disposition Patient was discharged to SNF/Subacute Facility(03) Discharge Diagnoses: Purnima Hernandez NP Dec 10, 2017 14:29
--- NOTE | 2017-12-11 02:15 | Discharge Summary 2 SIG ---
DATE OF ADMISSION: 11/26/2017 DATE OF DISCHARGE: 12/09/2017 CONSULTANTS: 1. Kasandra Jose M.D. 2. Yeyo Terrazas M.D. 3. Kyler Schumacher M.D. BRIEF HOSPITAL COURSE: The patient is a 77-year-old male, who lives at home. He has a history of prostate CA that apparently is metastatic and is on a drug trial at [facility]. He had been well until about a month ago when he had an upper respiratory infection and in his opinion had never recovered from his symptoms, although his cough has decreased and he is no longer short of breath, but he remained weak, withdrawn with anorexia, and poor appetite. He also had episodes of diarrhea. On evaluation at ED, liver function showed AST 127, ALT 254, total bilirubin 18, alkaline phosphatase 222, and lipase was 596. He was tachycardic. EKG showed sinus tachycardia with nonspecific ST to T-wave changes. Abdominal ultrasound revealed multiple cysts and gallbladder sludge with dilated biliary duct and abdominal aortic aneurysm of 3.6 cm. Chest x-ray showed no acute process. He was admitted for transaminitis and malnutrition. He had failure to thrive with anorexia. He was hypovolemic and dehydrated. He was given volume resuscitation. GI was consulted. The patient was noticed to be jaundiced and studies on imaging showed consistent with possible biliary ductal dilatation. Bilirubin level was elevated. Doubt this is from chronic liver disease as platelet count is normal and does not have any significant ascites or other manifestation. He had an abdominal and pelvic CT scan that showed stricture of common bile duct immediately below the common hepatic duct and cystic duct as well as complete obstruction of the common bile duct further downstream. There is a subtle heterogeneity on the medial aspect of the pancreatic head. On 11/29/2017, he underwent EGD with EUS with fine-needle aspiration. Findings showed a severely dilated common bile duct with stricture in the mid common bile duct and sludge, possible involvement of tumor into the common bile duct. There was a 3 cm hypoechoic lesion on the head of the pancreas highly suspicious for malignancy, status post fine-needle aspiration biopsy. On 11/30/2017, he underwent ERCP. 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 The patient underwent endoscopic retrograde cholangiopancreatography with needle-knife assisted sphincterotomy, balloon dilation, and stent placement. Leukocytosis was better. He was started empirically on Zosyn. The patient's biopsy was positive for adenocarcinoma of the pancreas. Family was explained of the patient's condition and made aware in the context of his prostate cancer that has been metastatic and his poor performance status. Arrangements were made for the patient's transfer to [facility] for a possible Whipple surgery, however, bed was not available. The patient was then discharged to long term and will arrange admission to [facility] directly. FINAL DIAGNOSES: 1. Pancreatic adenocarcinoma. 2. Advanced prostate carcinoma. 3. Resolving gastrointestinal bleed following biliary stent. 4. Anemia requiring transfusion. 5. Persistent jaundice. 6. Depression. 7. Anxiety. DISPOSITION: The patient was discharged to [facility]. DISCHARGE MEDICATIONS: Refer to medication list. Perry Desai M.D. I have been assigned to dictate discharge summary on this account and I was not involved in the patient's management. Purnima Hernandez N.P. DR: DARRELL JOB#: [id number] CC: HELENA
== END 2017-12-09 14:50 | DRG 374 ==
LOC: EMR 09:15 → EDBEDREQ 09:21 → 4W 09:38 → EDBEDREQ 10:19 → 4W 20:56
PROC: 0DB68ZX Excision of Stomach, Via Natural or Artificial Opening Endoscopic, Diagnostic (ICD-10-PCS; principal; 2017-11-29 11:44)
PROC: 0FBG4ZX Excision of Pancreas, Percutaneous Endoscopic Approach, Diagnostic (ICD-10-PCS; principal; 2017-11-29 11:44)
PROC: BF47ZZZ Ultrasonography of Pancreas (ICD-10-PCS; principal; 2017-11-29 11:44)
PROC: 0FB98ZX Excision of Common Bile Duct, Via Natural or Artificial Opening Endoscopic, Diagnostic (ICD-10-PCS; 2017-11-30 07:19)
PROC: 0F7C8DZ Dilation of Ampulla of Vater with Intraluminal Device, Via Natural or Artificial Opening Endoscopic (ICD-10-PCS; 2017-11-30 07:19)
PROC: BF40ZZZ Ultrasonography of Bile Ducts (ICD-10-PCS; 2017-11-30 07:19)
PROC: 0F798DZ Dilation of Common Bile Duct with Intraluminal Device, Via Natural or Artificial Opening Endoscopic (ICD-10-PCS; 2017-11-30 07:19)
PROC: 0FBC8ZX Excision of Ampulla of Vater, Via Natural or Artificial Opening Endoscopic, Diagnostic (ICD-10-PCS; 2017-11-30 07:19)
PROC: 30233N1 Transfusion of Nonautologous Red Blood Cells into Peripheral Vein, Percutaneous Approach (ICD-10-PCS; 2017-12-02)
DX: C78.89 Secondary malignant neoplasm of other digestive organs (principal); K83.1 Obstruction of bile duct; R57.1 Hypovolemic shock; E43 Unspecified severe protein-calorie malnutrition; C61 Malignant neoplasm of prostate; D64.9 Anemia, unspecified; R63.0 Anorexia; R17 Unspecified jaundice; K91.840 Postprocedural hemorrhage of a digestive system organ or structure following a digestive system procedure; Z68.1 Body mass index [BMI] 19.9 or less, adult; F32.9 Major depressive disorder, single episode, unspecified; I95.1 Orthostatic hypotension; R62.7 Adult failure to thrive; R00.0 Tachycardia, unspecified; I71.4 Abdominal aortic aneurysm, without rupture; F41.9 Anxiety disorder, unspecified; K29.70 Gastritis, unspecified, without bleeding
CPT/HCPCS: 36415; 71045; 74177; 74328; 76000; 76700; 80053; 81003; 82150; 82248; 82270; 82378; 82550; 82553; 82784; 82787; 83605; 83690; 83735; 84484; 85007; 85025; 85610; 86039; 86850; 86900; 86901; 86920; 87040; 87086; 87324; 93005; 93306; 94003; 94150; 96374; 96375; 99284; J2250; J2405; J2765; J8499